=== PATIENT | female | born 2000 | race Caucasian/White ===

== ENCOUNTER 2019-11-14 22:27 | Emergency (ER) | payer OTHER, SELFPAY ==
[2019-11-14 22:52] VITALS: BP 118/73; PULSE 86; RESP 16; TEMP 36.7; O2SAT 98; BMI 25.7
--- NOTE | 2019-11-14 23:09 | ED.HA ---
HPI - Headache General Chief Complaint: Headache Stated Complaint: MIGRAINE Time Seen by Provider: 11/14/19 23:08 History of Present Illness HPI Narrative: This is a 18-year-old female who presents with 2 weeks of headache that is similar in presentation and progression as her prior headaches. She denies any associated fevers, chills, hearing the/visual such speech abnormalities and denies any unilateral weakness / numbness /tingling. In addition, she denies any or GI symptoms Related Data Allergies Allergy/AdvReac Type Severity Reaction Status Date / Time No Known Allergies Allergy Verified 11/14/19 22:52 Review of Systems Review of Systems: Pertinent positives and negatives as stated in HPI and 10 point review of systems is otherwise negative. [facility] Past Medical History Source: nursing notes reviewed Medical History Migraine Social History Social History Alcohol intake: never Smoked in Last 30 Days: No Use of substances other than those prescribed or required for medical reasons: No Advance Directives: No Physical Exam Vital Signs and I&O and Narrative: Vital Signs and I&O: Vital Signs Temp 98.0 F 11/14/19 22:52 Pulse 71 11/14/19 23:41 Resp 18 11/14/19 23:41 BP 120/68 11/14/19 23:41 Pulse Ox 98 11/14/19 22:52 Intake & Output 11/14/19 11/14/19 11/15/19 06:59 18:59 06:59 Intake Total 382.95 / 382.95 Balance 382.95 / 382.95 Weight 70.307 kg Intake: Intake, IV Amoun t 382.95 / 382.95 0.9 % Sodium C hloride 1,000 ml 382.95 / 382.95 @ 999 mls/hr I VCONT .Q1H1M [facility] Rx#:[id number] Body Mass Index 25.7 VITAL SIGNS: Reviewed. GENERAL: Well developed, well nourished, in no acute distress. HEAD: Normocephalic/atraumatic, Posterior oropharynx was without edema, erythema or exudate. EYES: PERRLA, Pupils <>, EOMI intact without pain, no nystagmus/pallor/icterus noted EARS: Ext canals without abnormality, TMs non-bulging and non-erythematous NOSE: Nares patent bilateral OROPHARYNX: no oral lesions noted, posterior pharynx clear and non-erythematous without noted tonsillar enlargement/erythema/exudates NECK: Supple, no adenopathy LUNGS: Normal breath sounds. No adventitious sounds or accessory muscle use. SpO2<> CARDIOVASCULAR: Regular rate and rhythm without noted murmurs, no JVD or lower extremity edema. ABDOMEN: Soft, non-tender, non-distended with bowel sounds. No rigidity. No guarding. No palpable masses or hernias noted MUSCULOSKELETAL: No tenderness, deformities, or effusions noted on gross inspection. EXTREMITIES: No cyanosis, clubbing or edema. SKIN: Inspection of the skin reveals no rashes, ulcerations, jaundice, pallor, or petechiae. NEUROLOGIC: Alert and oriented x 3. Strength and sensation to light touch were grossly intact x 4. Course Course Hospital Course: this is a 18-year-old female with history and clinical presentation consistent with an acute on chronic exacerbation of her underlying chronic migraine headaches. There are no concerning focal deficits identified and patient had complete resolution of her headache with a L of fluids and a combination of Tylenol and Toradol. Review of urinalysis and urine are negative for evidence of infection or . Patient was discharged in stable condition. MDM - Headache Lab Data Labs: Lab Results 11/14/19 Range/Units 23:52 Urine Color YELLOW Urine Appearance HAZY Urine pH 7.0 (5.0-8.0) Ur Specific [place] 1.020 (1.005-1.025) Urine Protein NEG (NEG-TRACE) MG/DL Urine Glucose (UA) NEG (NEG) MG/DL Urine Ketones NEG (NEG) MG/DL Urine Blood NEG (NEG) Urine Nitrite NEG (NEG) Ur Leukocyte Esterase NEG (NEG) Urine Test NEGATIVE (NEGATIVE) Discharge Plan Discharge Clinical Impression: Migraine Qualifiers: Migraine type: unspecified Status migrainosus presence: without status migrainosus Intractability: not intractable Qualified Code(s): G43.909 - Migraine, unspecified, not intractable, without status migrainosus Patient Disposition: Home, Self-Care Instructions: Migraine Headache (ED) Additional Instructions: 1. Tylenol 1000 mg, orally, every 6 hours as needed for headache control. Do not exceed 4000 mg within 24 hours. 2. ibuprofen 400 mg, orally with milk or food, every 6 hours as needed for headache control. 3. you may take the Tylenol and ibuprofen together without adverse reaction. 4. follow-up with your primary care provider in 2 days for further evaluation and management of your headaches. The patient and/or family acknowledge understanding of results (as applicable), diagnosis, treatment plan, need for follow up, and symptoms that should prompt a return to the emergency room. Referrals: Physician,Unknown [Primary Care Provider] - 2 days
[2019-11-14 23:41] VITALS: BP 120/68; PULSE 71; RESP 18
[2019-11-14 23:59] LABS: Appearance Urine HAZY; Color Urine YELLOW; Glucose Urine UA NEG (NEG); Leukocyte Esterase Urine NEG (NEG); Nitrite Urine NEG (NEG); UACC Culture Trigger NO; Urine Blood NEG (NEG); Urine Ketones NEG (NEG); Urine Protein NEG (NEG-TRACE)
[2019-11-15 00:01] LABS: UPreg QC Valid YES; Urine Pregnancy NEGATIVE (NEGATIVE)
[2019-11-15] MEDS: Acetaminophen 325 MG TABLET 975 MG PO (00:22)
[2019-11-15] MEDS: Ketorolac Tromethamine 15 MG/ML VIAL IV (00:24)
[2019-11-15] MEDS: 0.9 % Sodium Chloride 1,000 ML 999 ML IVCONT (00:25)
== END 2019-11-15 01:31 | disposition home or self-care (01) ==
PROVIDERS: Emergency Provider Student in an Organized Health Care Education/Training Program
DX: G43.909 Migraine, unspecified, not intractable, without status migrainosus (principal)
CPT/HCPCS: 81003; 81025; 96361; 96374; 99284; J1885

== ENCOUNTER 2019-11-29 13:40 | Emergency (ER) | payer OTHER, SELFPAY ==
[2019-11-29 14:28] VITALS: BP 123/75; PULSE 99; RESP 16; TEMP 37; O2SAT 98; BMI 25.7
--- NOTE | 2019-11-29 15:30 | ED.GENADULT ---
HPI - General Adult General Chief complaint: General Medical Stated complaint: rash Time Seen by Provider: 11/29/19 15:15 Source: patient Mode of arrival: ambulatory Limitations: no limitations History of Present Illness HPI narrative: 18yoF c PMHX of Migraine headaches presenting to the ED c c/o rash to body for a few weeks worse today. Also Reports she recently traveled to [place] although had the rash before she went to [place] and came back and has had a runny nose only at nighttime and is requesting a COVID swab at this time. Denies any other symptoms complaints or concerns at this time. Related Data Previous Rx's Medication Instructions Recorded ketoconazole 1 applic TOPICAL BID #30 g NS 11/29/19 permethrin [Elimite] 1 applic TOPICAL Q14D #60 g NS 11/29/19 Allergies Allergy/AdvReac Type Severity Reaction Status Date / Time No Known Allergies Allergy Verified 11/14/19 22:52 Review of Systems Review of Systems: Constitutional : No Weight loss, No Fever, No Chills, No Night Sweats, No Fatigue, No Malaise ENT/Mouth : No Hearing loss, No Ear Pain, No Sinus Pain, No Hoarseness, No sore throat, No Swallowing Difficulty Cardiovascular : No Chest Pain, No SOB, Respiratory : No Cough, No Sputum, No Wheezing, No Dyspnea Gastrointestinal : No Nausea, No Vomiting, No Diarrhea, No Constipation, No abdominal Pain, No Hematochezia, No Melena Musculoskeletal : No joint pain, No Myalgias, No Joint Swelling Skin : No lacerations Neuro : No Weakness Yes all other systems are reviewed and are negative [facility] Past Medical History Attestation statement: The following information was validated with the patient. Medical History Migraine Sinus pain Surgical History S/P lumpectomy, right breast Social History Social History Alcohol intake: never Smoking Status: Never smoker Advance Directives: No Advance Directives Information Provided: No Physical Exam Vital Signs: Vital Signs: Vital Signs Temp Pulse Resp BP Pulse Ox 11/29/19 14:28 98.6 F 99 16 123/75 98 Body Mass Index 25.7 vital signs have been reviewed as normal and appeared to be correct. Blood pressure normal. Heart rate normal. Respiration rate normal. Temperature normal. Oxygen saturation normal. Appearance: Alert. Oriented X3. No acute distress. Head: Normal external exam. Normocephalic. Atraumatic. No [place] signs noted. No raccoon eyes noted Eyes: PERRLA. EOMI. Conjunctiva and sclera normal. Eyelids normal. ENT: EAC normal. TM's Normal. Pharynx normal. Uvula midline. Moist mucous membranes. No trismus noted. No drooling noted. No muffled voice noted. Neck: Normal inspection. Neck supple. FROM. No adenopathy. Thyroid Normal. No meningeal signs. No neck mass noted. CVS: Normal heart rate and rhythm. Heart sound normal. No murmurs noted. Pulses normal throughout. Respiratory: No respiratory distress. Painless inspiration. Breath sounds normal. No wheezes/rales/rhonchi noted. Chest nontender. No accessory muscle usage noted or decreased air movement noted. Abdomen: Soft and nontender. Bowel sounds normal in all 4 quadrants. No distention noted. No organomegaly noted. No visible injury noted. Back: No CVA tenderness. Full range of motion noted. Skin: Skin warm and dry. Normal skin color. Normal skin turgor. No lesions/lacerations noted. Rash scattered throughout body appears raised with pruritic macular papular lesions with burrows almost with a central clearing. See pictures below . Extremities: No lower extremity edema. Extremities exhibit normal range of motion. Extremities nontender. Neuro: Oriented X 3. No motor deficit. No sensory deficit. Reflexes normal. Course Course Course Narrative: 18yoF c PMHX of Migraine headaches presenting to the ED c c/o rash to body for a few weeks worse today. Also Reports she recently traveled to [place] although had the rash before she went to [place] and came back and has had a runny nose only at nighttime and is requesting a COVID swab at this time. - on exam appears to be scabies versus tinea corporis therefore will treat with scabies treatment and instructed patient if not better within a few days to try the anti fungal creams. Patient understands agrees with this plan. Will also test for COVID at this time. Along with instructions to follow up with any new or worsening symptoms to follow-up with primary care provider. Patient understands agrees Discharge Plan Discharge Clinical Impression: Scabies, Tinea corporis Patient Disposition: Home, Self-Care Instructions: Tinea Corporis (ED), Scabies (ED), COVID-19 (Coronavirus Disease 2019) (ED) Additional Instructions: Follow-up if any new or worsening symptoms follow-up with her primary care provider. At this time you will be contacted with either NEGATIVE OR POSITIVE results. -Please wait until we contact you for your results. At this time you will be okay for discharge. Please plan for self quarantine for up to 14 days. Do not expose yourself to others. You may not go to work. If testing does come back negative you may return to activities as long as you are no longer having any symptoms for at least 3 days. Please continue to follow cold instructions and wash your hands frequently. You may take Tylenol as directed on the bottle for pain or fever. Patient seen in the emergency department on 11/29/2019 and should be excused from work until negative test results AND until 72 hours without any symptoms AND at least 10 days have passed since symptoms first appeared or since last exposure to COVID-19 positive patient CDC Guidelines for home isolation: - Stay away from others - WEAR A MASK if you are sick AND STAY HOME - Cover your mouth and nose with a tissue when you cough or sneeze. Dispose of tissues in a lined trash can and wash your hands immediately with soap and water for at least 20 seconds. If soap and water are not available, clean hands with alcohol-based hand wildlife conservation professor that contains at least 60% alcohol. - Clean your hands often with soap and water for at least 20 seconds - Avoid touching your eyes, nose and mouth with unwashed hands - Do not share dishes, drinking glasses, cups, eating utensils, towels, or bedding with other people in your home. After using these items, wash them thoroughly with soap and water or put in the field consultant. - Clean high-touch surfaces in your isolation area ( sick room and bathroom) every day; let a caregiver clean and disinfect high-touch surfaces in other areas of the home. Clean the area or item with soap and water or another detergent if it is dirty. Then, use a household disinfectant. - Limit contact with pets and animals: If you must care for a pet, wash your hands before and after interacting with them).).).).).).). Prescriptions: New permethrin [Elimite] 5 % cream 1 applic topical Q14D Qty: 60 RF: 1 ketoconazole 2 % cream 1 applic topical BID Qty: 30 RF: 0 Stand Alone Forms: Work/School Release Print Language: [place]
== END 2019-11-29 16:30 | disposition home or self-care (01) ==
PROVIDERS: Physician Assistant Medical; Emergency Provider Emergency Medicine
DX: B35.4 Tinea corporis (principal); Z20.828 Contact with and (suspected) exposure to other viral communicable diseases
CPT/HCPCS: 87635; 99284

== ENCOUNTER 2020-01-15 18:44 | Emergency (ER) | payer OTHER, SELFPAY ==
[2020-01-15 19:02] VITALS: BP 143/82; PULSE 113; RESP 20; TEMP 36.4; O2SAT 98; BMI 25.7
[2020-01-15 20:00] VITALS: BP 120/71; PULSE 80; RESP 16; O2SAT 99
--- NOTE | 2020-01-15 20:08 | PC.NURSE ---
pt up to restroom for urine sample to lab.
[2020-01-15 20:11] LABS: Glucose Urine UA NEG (NEG); Leukocyte Esterase Urine NEG (NEG); Nitrite Urine NEG (NEG); Specific Gravity - Urine 1.025 (1.005-1.025); Urine Blood NEG (NEG); Urine Ketones NEG (NEG); Urine Protein NEG (NEG-TRACE)
[2020-01-15 20:13] LABS: UPreg QC Valid YES; Urine Pregnancy NEGATIVE (NEGATIVE)
[2020-01-15 20:13] LABS: Appearance Urine CLEAR; Color Urine YELLOW
--- NOTE | 2020-01-15 20:30 | ED.GENADULT ---
HPI - General Adult General Chief complaint: General Medical Stated complaint: Med reaction Time Seen by Provider: 01/15/20 18:46 Source: patient Mode of arrival: ambulatory Limitations: no limitations History of Present Illness HPI narrative: 19-year-old female with history of migraines presents with adverse drug reaction And suspected sexually transmitted infection exposure. She states that she took a Percocet 10 because of back pain, and is having palpitations, feels weird , and states that when she took this Percocet she was having sex with somebody in the condom broke. She is requesting sexually transmitted infection testing and Treatment. Onset (ago): hour(s) Severity: mild Severity scale (1-10): 3 Related Data Previous Rx's Medication Instructions Recorded ketoconazole 1 applic TOPICAL BID #30 g NS 11/29/19 permethrin [Elimite] 1 applic TOPICAL Q14D #60 g NS 11/29/19 Allergies Allergy/AdvReac Type Severity Reaction Status Date / Time No Known Allergies Allergy Verified 01/15/20 19:02 Review of Systems Review of Systems: Constitutional: No Fever, No Chills ENT/Mouth: No sore throat, No Rhinorrhea Eyes: No Eye Pain, No Swelling, No Redness Cardiovascular: No Chest Pain, No SOB Respiratory: No Cough, No Sputum Gastrointestinal: No Nausea, No Vomiting, No Diarrhea, No abdominal Pain Genitourinary: No Dysuria, No Hematuria Musculoskeletal: No joint pain, No Myalgias, No Joint Swelling Skin: No Skin Lesions, No rash Neuro: No Weakness, No Numbness, No Loss of Consciousness, No Dizziness, No Headache Psych: No Anxiety, No Depression, No SI/HI/AH/VH Heme/Lymph: No Bruising, No Bleeding,No Lymphadenopathy Endocrine: No Polyuria, No Polydipsia Yes all other systems are reviewed and are negative [facility] Past Medical History Attestation statement: The following information was validated with the patient. Medical History Migraine Sinus pain Surgical History S/P lumpectomy, right breast Social History Social History Alcohol intake: never Smoking Status: Never smoker Advance Directives: No Advance Directives Information Provided: Yes Physical Exam Vital Signs: Vital Signs: Last Vital Signs Temp 97.6 F 01/15/20 19:02 Pulse 80 01/15/20 20:00 Resp 16 01/15/20 20:00 BP 120/71 01/15/20 20:00 Pulse Ox 99 01/15/20 20:00 Body Mass Index 25.7 Appearance: Alert. Oriented X3. No acute distress. Eyes: Pupils equal, round and reactive to light. ENT: Pharynx normal. Neck: Normal inspection. Neck supple. CVS: Normal heart rate and rhythm. Pulses normal. Respiratory: No respiratory distress. Breath sounds normal. Abdomen: Soft and nontender. Skin: Skin warm and dry. Normal skin color. Normal skin turgor. Extremities: No lower extremity edema. Neuro: No motor deficit. No sensory deficit. Course Course Course Narrative: 19-year-old female presents with narcotic abuse and sexually transmitted infection exposure. Plan of care is to treat and test for syphilis, chlamydia and gonorrhea. As far as the adverse drug reaction, she was advised that she needs to wait it out, she was advised not to take Percocets that do not belong to her or prescribed to her. She is alert oriented x4, answering questions politely and appropriately, vital signs within normal limits and stable, appears nontoxic. Patient verbalized understanding of and agrees to plan of care discharge home. Medical Decision Making Differential Diagnosis Differential Diagnosis: Opioid abuse, sexually transmitted infection exposure Lab Data Lab results reviewed: Yes I reviewed the patient's lab results. Labs: Lab Results 01/15/20 01/15/20 Range/Units 19:59 20:00 Urine Color YELLOW Urine Appearance CLEAR Urine pH 7.0 (5.0-8.0) Ur Specific [place] 1.025 (1.005-1.025) Urine Protein NEG (NEG-TRACE) MG/DL Urine Glucose (UA) NEG (NEG) MG/DL Urine Ketones NEG (NEG) MG/DL Urine Blood NEG (NEG) Urine Nitrite NEG (NEG) Ur Leukocyte Esterase NEG (NEG) Urine Test NEGATIVE (NEGATIVE) Discharge Plan Discharge Clinical Impression: Sexually transmitted infection, Narcotic abuse Patient Disposition: Home, Self-Care Instructions: Sexually Transmitted Diseases (ED) Additional Instructions: Please stop using Percocet that are not prescribed to you. You were evaluated for adverse drug reaction. The medication reaction will wear off in time. You were tested and treated for syphilis, chlamydia and gonorrhea. please follow-up with [facility] for further care. Thank you for choosing this emergency department for evaluation. Please follow-up with primary care physician as needed. Return to the emergency department for any new, concerning, or worsening symptoms. Prescriptions: No Action permethrin [Elimite] 5 % cream 1 applic topical Q14D Qty: 60 RF: 1 ketoconazole 2 % cream 1 applic topical BID Qty: 30 RF: 0 Interventions: ED Discharge Assessment Last Done: 01/15/20 21:36 Discharge Date/Time: 01/15/20 21:55
--- NOTE | 2020-01-15 20:33 | PC.NURSE ---
PA WITH PT IN ROOM FOR EVAL.
[2020-01-15] MEDS: Azithromycin 500 MG TABLET 1000 MG PO ×2 (20:43)
[2020-01-15] MEDS: Penicillin G Benzathine 2,400,000 UNIT/4 ML SYRINGE 2400000 UNIT IM (20:43)
[2020-01-15] MEDS: cefTRIAXone sodium 250 MG, Lidocaine HCl 1 % MPF 0.9 ML IM (20:43)
[2020-01-21 14:27] LABS: CT PCR NOT DETECTED (Not Detect.); NG PCR NOT DETECTED (Not Detect.)
== END 2020-01-15 21:55 | disposition home or self-care (01) ==
PROVIDERS: Nurse Practitioner Family; Emergency Provider Emergency Medicine
DX: Z20.2 Contact with and (suspected) exposure to infections with a predominantly sexual mode of transmission (principal); R00.2 Palpitations; T40.2X5A Adverse effect of other opioids, initial encounter; F11.10 Opioid abuse, uncomplicated; Y92.9 Unspecified place or not applicable
CPT/HCPCS: 81003; 81025; 87491; 87591; 96372; 99284; J0561; J0696

== ENCOUNTER 2020-05-05 18:25 | Emergency (ER) | payer OTHER, SELFPAY ==
[2020-05-05 18:35] VITALS: BP 132/86; PULSE 98; RESP 16; TEMP 37.2; O2SAT 100; BMI 26.6
--- NOTE | 2020-05-05 18:46 | ED.GENADULT ---
HPI - General Adult General Chief complaint: General Medical Stated complaint: sore throat, headache Source: patient Mode of arrival: ambulatory Limitations: no limitations History of Present Illness HPI narrative: 19-year-old female with no significant past medical history presents with sore throat, fever, and chills. States that she noted white spots all over her tonsils and back of her throat. She does not describe any other symptoms, denies chest pain or pressure, palpitations, shortness breath, abdominal pain, abdominal distention, dysuria, hematuria, or any other concerning symptoms. Onset (ago): day(s) Severity: moderate Severity scale (1-10): 8 Quality: burning and aching Pain Consistency: constant Relieving factors: none Exacerbating factors: eating Associated symptoms: fever/chills and headaches Treatments prior to arrival: none Related Data Previous Rx's Medication Instructions Recorded ketoconazole 1 applic TOPICAL BID #30 g NS 11/29/19 permethrin [Elimite] 1 applic TOPICAL Q14D #60 g NS 11/29/19 amoxicillin 500 mg PO Q12H 10 Days #20 cap 05/05/20 ibuprofen 600 mg PO Q6H PRN #30 tab 05/05/20 Allergies Allergy/AdvReac Type Severity Reaction Status Date / Time No Known Allergies Allergy Verified 01/15/20 19:02 Review of Systems Review of Systems: Constitutional: positive Fever, positive Chills, positive fatigue, positive Malaise ENT/Mouth: positive sore throat, no runny nose Eyes: No Discharge Cardiovascular: No Chest Pain, No SOB Respiratory: No Cough, No Sputum, No Wheezing, No Smoke Exposure, No Dyspnea Gastrointestinal: No Nausea, No Vomiting, No Diarrhea Genitourinary: no irregular bleeding, No Dysuria, No Urinary Frequency, No Hematuria, No Urinary Incontinence, No Urgency, No Flank Pain, Musculoskeletal: positive Myalgia Skin: No rash Neuro: No Headache Yes all other systems are reviewed and are negative [facility] Past Medical History Attestation statement: The following information was validated with the patient. Source: old records reviewed Medical History Migraine Sinus pain Surgical History S/P lumpectomy, right breast Social History Social History Alcohol intake: never Smoking Status: Never smoker Advance Directives: No Advance Directives Information Provided: Yes Physical Exam Vital Signs: Vital Signs: Last Vital Signs Temp 99.0 F 05/05/20 18:35 Pulse 98 05/05/20 18:35 Resp 16 05/05/20 18:35 BP 132/86 05/05/20 18:35 Pulse Ox 100 05/05/20 18:35 Body Mass Index 26.6 Appearance: Alert. Oriented X3. Moderate distress. Eyes: Pupils equal, round and reactive to light. ENT: Pharynx erythematous with tonsillar swelling and bilateral exudates. Neck: Normal inspection. Neck supple. CVS: Normal heart rate and rhythm. Pulses normal. Respiratory: No respiratory distress. Breath sounds normal. Abdomen: Soft and nontender. Skin: Skin warm and dry. Normal skin color. Normal skin turgor. Extremities: No lower extremity edema. Neuro: No motor deficit. No sensory deficit. Course Course Course Narrative: 19-year-old female presents with upper respiratory symptoms and sore throat. Plan of care is to test for COVID and strep. Based on patient's physical presentation, Centor scale of 3, we will treat for pharyngitis. Patient verbalized understanding of and agrees to plan of care discharge home. Medical Decision Making Differential Diagnosis Differential Diagnosis: Pharyngitis, URI, COVID-19 Medical Records Medical records reviewed: Yes I reviewed the patient's medical records. Lab Data Lab results reviewed: Yes I reviewed the patient's lab results. Labs: Lab Results 05/05/20 Range/Units 19:34 Coronavirus (PCR) NEGATIVE (Negative) Influenza Type A (PCR) NEGATIVE (Negative) Influenza Type B (PCR) NEGATIVE (Negative) RSV RNA Qual (PCR) NEGATIVE (Negative) Discharge Plan Discharge Clinical Impression: Strep pharyngitis, COVID-19 Patient Disposition: Home, Self-Care Instructions: Pharyngitis (ED), Strep Throat (ED), COVID-19 (Coronavirus Disease 2019) (ED) Additional Instructions: You were evaluated for sore throat, headache, and upper respiratory symptoms. We tested for COVID-19, I will call you with your test results. We tested you for strep throat, we are treating you based on her physical presentation. Please take amoxicillin twice a day as directed use Tylenol and Motrin as needed for pain management. Thank you for choosing this emergency department for evaluation. Please follow-up with primary care physician as needed. Return to the emergency department for any new, concerning, or worsening symptoms. Prescriptions: New amoxicillin 500 mg capsule 500 mg PO Q12H 10 Days Qty: 20 RF: 0 ibuprofen 600 mg tablet 600 mg PO Q6H PRN (Reason: fever or pain) Qty: 30 RF: 0 No Action permethrin [Elimite] 5 % cream 1 applic topical Q14D Qty: 60 RF: 1 ketoconazole 2 % cream 1 applic topical BID Qty: 30 RF: 0 Interventions: ED Discharge Assessment Last Done: 05/05/20 19:50 Discharge Date/Time: 05/05/20 19:51
--- NOTE | 2020-05-05 19:00 | PC.NURSE ---
PT EVALED BY PROVIDER FOR SORE THROAT HEADACHE. TONSILLS SWOLLEN, THROAT RED. SEE NEW ORDERS.
[2020-05-05] MEDS: Ibuprofen Oral Susp 200 MG/10 ML ORAL.SUSP 600 MG PO (19:36)
[2020-05-05] MEDS: Amoxicillin 500 MG CAPSULE PO (19:37)
[2020-05-05 20:30] LABS: Influenza A PCR NEGATIVE (Negative); Influenza B PCR NEGATIVE (Negative); Resp Syncy Virus RNA Qual PCR NEGATIVE (Negative); SARS COV2 PCR INHOUSE NEGATIVE (Negative)
== END 2020-05-05 19:51 | disposition home or self-care (01) ==
PROVIDERS: Nurse Practitioner Family; Emergency Provider Emergency Medicine
DX: U07.1 COVID-19 (principal); J02.0 Streptococcal pharyngitis; J02.9 Acute pharyngitis, unspecified; R51.9 Headache, unspecified; Z79.899 Other long term (current) drug therapy
CPT/HCPCS: 0241U; 36415; 87880; 99283

== ENCOUNTER 2020-05-24 14:43 | Outpatient (REF) | payer OTHER, SELFPAY ==
[2020-05-24 15:46] LABS: COVID-19 Test Negative (Negative)
== END 2020-05-24 14:44 | disposition home or self-care (01) ==
LOC: HO.LAB 14:43
PROVIDERS: Visit Provider Internal Medicine
DX: Z20.822 Contact with and (suspected) exposure to COVID-19 (principal)
CPT/HCPCS: 36415; 87635; C9803

== ENCOUNTER 2020-07-04 09:07 | Emergency (ER) | payer OTHER, SELFPAY ==
[2020-07-04 09:26] VITALS: BP 121/88; PULSE 86; RESP 18; TEMP 36.7; O2SAT 98; BMI 26.6
[2020-07-04 09:48] LABS: Glucose Urine UA NEG (NEG); Leukocyte Esterase Urine NEG (NEG); Nitrite Urine NEG (NEG); PH 6.5 (5.0-8.0); Specific Gravity - Urine <= 1.005 (1.005-1.025); Urine Blood 3+ (NEG); Urine Ketones NEG (NEG); Urine Protein 1+ MG/DL (NEG-TRACE)
[2020-07-04 09:49] LABS: Appearance Urine HAZY; Color Urine YELLOW
[2020-07-04 09:50] LABS: UPreg QC Valid YES; Urine Pregnancy NEGATIVE (NEGATIVE)
[2020-07-04 10:07] LABS: Amorphous Sediment Urine 1+ /LPF; Bacteria Urine 1+ /LPF; Squamous Epithelial Cell Urine 4+ /LPF; WBC Urine 0-2 /HPF (0-4)
== END 2020-07-04 10:41 | disposition left against medical advice (07) ==
PROVIDERS: Emergency Provider Emergency Medicine
DX: R11.10 Vomiting, unspecified (principal); Z86.16 Personal history of COVID-19
CPT/HCPCS: 81001; 81025; 99283

== ENCOUNTER 2020-07-04 16:09 | Emergency (ER) | payer OTHER, SELFPAY ==
[2020-07-04 16:31] VITALS: BP 123/88; PULSE 86; RESP 16; TEMP 36.4; O2SAT 100; BMI 26.6
[2020-07-04 17:55] LABS: MANUAL DIFF FLAG NO
[2020-07-04 17:56] LABS: Basophils Absolute Auto 0.1 X10*3/uL (0.0-0.2); Basophils Percent Auto 0.5 % (0-2); Eosinophils Absolute Auto 0.3 X10*3/uL (0.0-0.4); Eosinophils Percent Auto 2.7 % (0-4); Hematocrit 43.3 % (37-47); Hemoglobin 13.9 g/dl (12.0-16.0); Imm Gran Abs Auto 0.03 X10*3/uL (0.00-0.03); Imm Gran Pct Auto 0.3 % (0.0-0.4); Lymphocytes Absolute Auto 2.2 X10*3/uL (1.2-4.9); Lymphocytes Percent Auto 20.8 % (20-40); Mean Corpuscular HGB Conc 32.1 g/dl (31.0-35.0); Mean Corpuscular Hemoglobin 26.5 pg (27.0-33.0); Mean Corpuscular Volume 82.6 fL (80-98); Mean Platelet Volume 10.5 fL (9.4-12.3); Monocytes Percent Auto 9.3 % (2-11); Neutrophils Absolute Auto 7.1 X10*3/uL (2.0-8.3); Neutrophils Percent Auto 66.4 % (45-73); Platelet Count 270 X10*3/uL (160-400); Red Blood Count 5.24 X10*6/uL (4.20-5.50); Red Cell Distribution Width 13.4 % (11.0-16.0); White Blood Count 10.7 X10*3/uL (4.8-10.8)
[2020-07-04 18:07] LABS: Glucose Urine UA NEG (NEG); Leukocyte Esterase Urine NEG (NEG); Nitrite Urine NEG (NEG); PH 6.5 (5.0-8.0); Urine Blood 2+ (NEG); Urine Ketones NEG (NEG); Urine Protein 2+ MG/DL (NEG-TRACE)
[2020-07-04 18:08] LABS: Appearance Urine CLEAR; Color Urine YELLOW
[2020-07-04 18:13] LABS: Anion Gap 13 (12-20); Blood Urea Nitrogen 9 mg/dL (9-16); Calcium 9.4 mg/dL (8.4-10.2); Carbon Dioxide 26 mmol/L (22-29); Chloride 103 mmol/L (96-108); Creatinine Clr Calc Pharmacy 92.5; Estimated Glomerular Filt Rate > 60; Glucose Random 87 mg/dL (60-115); Potassium 3.4 mmol/L (3.3-5.1); Sodium 139 mmol/L (135-145)
[2020-07-04 18:16] LABS: Squamous Epithelial Cell Urine 4+ /LPF; WBC Urine 0-2 /HPF (0-4)
[2020-07-04 19:29] VITALS: BP 129/82; PULSE 84; RESP 16; TEMP 37; O2SAT 98
--- NOTE | 2020-07-04 20:15 | ED.ABDPAIN ---
HPI - Abdominal Pain General Chief Complaint: Abdominal Pain Stated Complaint: vomiting Time Seen by Provider: 07/04/20 20:15 Source: patient Mode of arrival: ambulatory Limitations: no limitations History of Present Illness HPI narrative: Patient no significant past medical history complaining of nausea vomiting with diffuse abdominal pain vomited 5- 6 times no diarrhea check test at home which was negative no fever or chills no shortness of breath or cough Related Data Previous Rx's Medication Instructions Recorded ketoconazole 1 applic TOPICAL BID #30 g NS 11/29/19 permethrin [Elimite] 1 applic TOPICAL Q14D #60 g NS 11/29/19 amoxicillin 500 mg PO Q12H 10 Days #20 cap 05/05/20 ibuprofen 600 mg PO Q6H PRN #30 tab 05/05/20 ondansetron 4 mg PO Q6-8H PRN #7 tab 07/04/20 Allergies Allergy/AdvReac Type Severity Reaction Status Date / Time No Known Allergies Allergy Verified 07/04/20 09:26 Review of Systems Review of Systems Yes all other systems are reviewed and are negative Physical Exam Vital Signs: Vital Signs: Last Vital Signs Temp 98.6 F 07/04/20 19:29 Pulse 84 07/04/20 19:29 Resp 16 07/04/20 19:29 BP 129/82 07/04/20 19:29 Pulse Ox 98 07/04/20 19:29 Body Mass Index 26.6 Appearance: Alert. Oriented X3. No acute distress. Eyes: PERRLA, No Nystagmus ENT: Pharynx normal. Oral Mucosa moist Neck: Normal inspection. Neck supple. CVS: Normal heart rate and rhythm. Pulses normal. Respiratory: No respiratory distress. Equal air entry bilateral, no wheezing/rales/rhonchi Abdomen: Soft and mild epigastric tenderness no rebound tenderness or guarding Bowel sounds are present, no mass palpable, no CVA tenderness Skin: Skin warm and dry. Normal skin color. Normal skin turgor. Extremities: No lower extremity edema. No calf tenderness Neuro: Oriented X 3. No motor deficit. No sensory deficit.No cerebellar signs , cranial nerves II-XII intact MDM - Abdominal Pain Lab Data Attestation: I reviewed the patient's lab results. Result diagrams: 07/04/20 17:48 07/04/20 17:48 Labs: Lab Results 05/07/04/20 07/04/20 Range/Units 17:48 17:48 17:57 WBC 10.7 (4.8-10.8) X10*3/uL RBC 5.24 (4.20-5.50) X10*6/uL Hgb 13.9 (12.0-16.0) g/dl Hct 43.3 (37-47) % MCV 82.6 (80-98) fL MCH 26.5 L (27.0-33.0) pg MCHC 32.1 (31.0-35.0) g/dl RDW 13.4 (11.0-16.0) % Plt Count 270 (160-400) X10*3/uL MPV 10.5 (9.4-12.3) fL Immature Gran % (Auto) 0.3 (0.0-0.4) % Neut % (Auto) 66.4 (45-73) % Lymph % (Auto) 20.8 (20-40) % [place] % (Auto) 9.3 (2-11) % Eos % (Auto) 2.7 (0-4) % Baso % (Auto) 0.5 (0-2) % Lymph # (Auto) 2.2 (1.2-4.9) X10*3/uL [place] # (Auto) 1.0 (0.1-1.2) X10*3/uL Eos # (Auto) 0.3 (0.0-0.4) X10*3/uL Baso # (Auto) 0.1 (0.0-0.2) X10*3/uL Abs Immat Gran (auto) 0.03 (0.00-0.03) X10*3/uL Absolute Neuts (auto) 7.1 (2.0-8.3) X10*3/uL Absolute Nucleated RBC 0.000 (0.0-0.012) X10*3/uL Nucleated RBC % (auto) 0.0 (0.0-0.2) /100WBC Sodium 139 (135-145) mmol/L Potassium 3.4 (3.3-5.1) mmol/L Chloride 103 (96-108) mmol/L Carbon Dioxide 26 (22-29) mmol/L Anion Gap 13 (12-20) BUN 9 (9-16) mg/dL Creatinine 0.96 (0.5-1.4) mg/dL Estim Creat Clear Calc 92.5 Estimated GFR > 60 Random Glucose 87 (60-115) mg/dL Calcium 9.4 (8.4-10.2) mg/dL Urine Color YELLOW Urine Appearance CLEAR Urine pH 6.5 (5.0-8.0) Ur Specific [place] 1.010 (1.005-1.025) Urine Protein 2+ H (NEG-TRACE) MG/DL Urine Glucose (UA) NEG (NEG) MG/DL Urine Ketones NEG (NEG) MG/DL Urine Blood 2+ H (NEG) Urine Nitrite NEG (NEG) Ur Leukocyte Esterase NEG (NEG) Urine RBC 10-14 H (0) /HPF Urine WBC 0-2 (0-4) /HPF Ur Squamous Epith Cells 4+ /LPF Urine Bacteria NONE /LPF Discharge Plan Discharge Clinical Impression: Vomiting Patient Disposition: Home, Self-Care Instructions: Acute Nausea and Vomiting (ED) Additional Instructions: Drink plenty of fluids take nausea medication as prescribed. Follow with PCP if not better Prescriptions: New ondansetron 4 mg tablet,disintegrating 4 mg PO Q6-8H PRN (Reason: nausea and vomiting) Qty: 7 RF: 0 No Action permethrin [Elimite] 5 % cream 1 applic topical Q14D Qty: 60 RF: 1 ketoconazole 2 % cream 1 applic topical BID Qty: 30 RF: 0 amoxicillin 500 mg capsule 500 mg PO Q12H 10 Days Qty: 20 RF: 0 ibuprofen 600 mg tablet 600 mg PO Q6H PRN (Reason: fever or pain) Qty: 30 RF: 0 Stand Alone Forms: Work/School Release Interventions: ED Discharge Assessment Last Done: 07/04/20 22:08 Discharge Date/Time: 07/04/20 22:08 [facility] Past Medical History Medical History Migraine Sinus pain Surgical History S/P lumpectomy, right breast Social History Social History Alcohol intake: never Smoking Status: Never smoker Advance Directives: No Advance Directives Information Provided: Yes Patient : No
[2020-07-04] MEDS: Dicyclomine HCl 10 MG CAPSULE 20 MG PO (20:42)
== END 2020-07-04 22:08 | disposition home or self-care (01) ==
PROVIDERS: Emergency Provider Internal Medicine
DX: R11.2 Nausea with vomiting, unspecified (principal); R10.13 Epigastric pain; Z86.16 Personal history of COVID-19
CPT/HCPCS: 36415; 80048; 81001; 85025; 99283; 99284

== ENCOUNTER 2020-08-29 17:53 | Emergency (ER) | payer OTHER, SELFPAY ==
[2020-08-29 19:01] VITALS: BP 114/75; PULSE 89; RESP 18; TEMP 37.2; O2SAT 96; BMI 27.4
[2020-08-29 19:21] LABS: COVID-19 Test Negative (Negative); IDNOW Serial# 9DD0AD1C
--- NOTE | 2020-08-29 20:13 | ED.URI ---
HPI - URI/Sore Throat General Chief Complaint: Upper Respiratory Symptoms Stated Complaint: covid symptoms Time Seen by Provider: 08/29/20 20:13 Source: patient Mode of arrival: ambulatory Limitations: no limitations History of Present Illness HPI Narrative: 19 yo female presenting to the ER with cough, body aches, and low grade fevers for 5 days. She just came home from [place] staying with family and attributed her symptoms to traveling and the rain. She found out today that the aunt she was staying with in [place] was positive for COVID-19. She denies SOB or chest pain. She feels weak and achey. She has been taking Tylenol intermittent. She has not had any high grade fevers. MD elicited complaint: fever, cough, sore throat and nasal congestion Onset (ago): day(s) (5) Consistency: constant Severity: moderate Able to tolerate fluids by mouth: Yes Exacerbating factors: exertion Relieving factors: OTC cold medicine Context: sick contacts Associated symptoms: fever, chills, myalgias, headache, nasal congestion, sore throat and cough Treatments prior to arrival: none Related Data Previous Rx's Medication Instructions Recorded ketoconazole 1 applic TOPICAL BID #30 g NS 11/29/19 permethrin [Elimite] 1 applic TOPICAL Q14D #60 g NS 11/29/19 amoxicillin 500 mg PO Q12H 10 Days #20 cap 05/05/20 ibuprofen 600 mg PO Q6H PRN #30 tab 05/05/20 ondansetron 4 mg PO Q6-8H PRN #7 tab 07/04/20 hydrocodone-homatropine [Hycodan] 5 ml PO Q6H PRN #60 ml 08/29/20 Allergies Allergy/AdvReac Type Severity Reaction Status Date / Time No Known Allergies Allergy Verified 08/29/20 19:01 Review of Systems Review of Systems: Constitutional: + Fever, + Chills ENT/Mouth: + sore throat, No Rhinorrhea, No Swallowing Difficulty Eyes: No Eye Pain, No Swelling, No Redness Cardiovascular: No Chest Pain, No SOB Respiratory: + Cough, No Sputum, No Wheezing, No dyspnea Gastrointestinal: No Nausea, No Vomiting, No Diarrhea, No abdominal Pain Musculoskeletal: No joint pain, + Myalgias Skin: No Skin Lesions, No rash Neuro: No Weakness, No Numbness, No Dizziness, + Headache Psych: + Anxiety/Panic Heme/Lymph: No Bruising, No Lymphadenopathy PMFSH Past Medical History Attestation statement: The following information was validated with the patient. Medical History Migraine Sinus pain Surgical History S/P lumpectomy, right breast Social History Social History Alcohol intake: never Advance Directives: No Patient : No Physical Exam Vital Signs: Vital Signs: Last Vital Signs Temp 99.0 F 08/29/20 19:01 Pulse 89 08/29/20 19:01 Resp 18 08/29/20 19:01 BP 114/75 08/29/20 19:01 Pulse Ox 96 08/29/20 19:01 Body Mass Index 27.4 Appearance: Alert. Oriented X3. No acute distress. Eyes: Pupils equal, round and reactive to light. ENT: Pharynx with mild generalized erythema. No tonsilar exudates. Neck: Normal inspection. Neck supple. CVS: Normal heart rate and rhythm. Pulses normal. Respiratory: No respiratory distress. Breath sounds normal. Skin: Skin warm and dry. Normal skin color. Normal skin turgor. No rashes. Extremities: No lower extremity edema. Neuro: Oriented X 3. nonfocal Course Course Course Narrative: 19 y/o female presenting with symptoms of COVID-19 after known exposure. Her PE is unremarkable and VS are normal. Her COVID test is negative. She was counseled on how this is most likely a false negative test and she should proceed with qurantine given her known exposure. She was given a work note for 10 days and encouraged to f/u with her PCP. She can come back for repeat testing if desired. Stable for d/c with Rx for antitussive MDM - URI/Sore Throat Lab Data Labs: Lab Results 08/29/20 Range/Units 18:56 COVID-19 ([facility]) Negative (Negative) COVID-19 Clin Com See Note Critical Care Time Critical Care Time Critical Care Time: No Discharge Plan Discharge Clinical Impression: Upper respiratory infection Qualifiers: URI type: unspecified viral URI Qualified Code(s): J06.9 - Acute upper respiratory infection, unspecified Patient Disposition: Home, Self-Care Instructions: COVID-19 (Coronavirus Disease 2019) (ED) Additional Instructions: Your COVID test taj was NEGATIVE. HOWEVER, given your KNOWN EXPOSURE to a COVID POSITIVE person, this is likely a FALSE NEGATIVE TEST. Recommend quarantine at home for 10 days. Rest. Drink plenty of fluids. Take over the counter cold/flu medications as needed for your symptoms. Take Tylenol and/or Motrin as needed for fevers and body aches. Follow up with your doctor this week. If you develop difficulty breathing or any other concerning symptom come back to the ER for further evaluation. Prescriptions: New hydrocodone-homatropine [Hycodan] 5-1.5 mg/5 mL (5 mL) syrup 5 ml PO Q6H PRN (Reason: cough) Qty: 60 RF: 0 No Action ondansetron 4 mg tablet,disintegrating 4 mg PO Q6-8H PRN (Reason: nausea and vomiting) Qty: 7 RF: 0 permethrin [Elimite] 5 % cream 1 applic topical Q14D Qty: 60 RF: 1 ketoconazole 2 % cream 1 applic topical BID Qty: 30 RF: 0 amoxicillin 500 mg capsule 500 mg PO Q12H 10 Days Qty: 20 RF: 0 ibuprofen 600 mg tablet 600 mg PO Q6H PRN (Reason: fever or pain) Qty: 30 RF: 0 Stand Alone Forms: Work/School Release
== END 2020-08-29 21:05 | disposition home or self-care (01) ==
LOC: HO.ED 20:22
PROVIDERS: Emergency Provider Internal Medicine
DX: J06.9 Acute upper respiratory infection, unspecified (principal); Z20.822 Contact with and (suspected) exposure to COVID-19; R50.9 Fever, unspecified
CPT/HCPCS: 36415; 87635; 99282; 99283

== ENCOUNTER 2020-08-30 19:40 | Emergency (ER) | payer OTHER, SELFPAY ==
[2020-08-30 19:47] VITALS: BMI 25.7
[2020-08-30 20:16] VITALS: BMI 26.6
[2020-08-30 20:16] LABS: COVID-19 Test Negative (Negative); IDNOW Serial# 9DD0AD1C
[2020-08-30 21:01] VITALS: BP 124/80; PULSE 89; RESP 16; TEMP 35.6; O2SAT 98; BMI 27.4
--- NOTE | 2020-08-30 21:18 | ED.GENADULT ---
HPI - General Adult General Chief complaint: General Medical Stated complaint: covid? false neg test Time Seen by Provider: 08/30/20 21:18 Source: patient Mode of arrival: ambulatory Limitations: no limitations History of Present Illness HPI narrative: Patient with cold symptoms running nose or sore throat congestion headache body aches for last 5 days states that she slept with her aunt 3 days ago who had COVID positive patient was seen here and COVID was negative. Patient does have a dry cough no shortness of breath no rash patient has not been vaccinated with COVID-19 Related Data Previous Rx's Medication Instructions Recorded ketoconazole 1 applic TOPICAL BID #30 g NS 11/29/19 permethrin [Elimite] 1 applic TOPICAL Q14D #60 g NS 11/29/19 amoxicillin 500 mg PO Q12H 10 Days #20 cap 05/05/20 ibuprofen 600 mg PO Q6H PRN #30 tab 05/05/20 ondansetron 4 mg PO Q6-8H PRN #7 tab 07/04/20 hydrocodone-homatropine [Hycodan] 5 ml PO Q6H PRN #60 ml 08/29/20 amoxicillin 875 mg PO BID #20 tab 08/30/20 ibuprofen 600 mg PO Q6H PRN #20 tab 08/30/20 Allergies Allergy/AdvReac Type Severity Reaction Status Date / Time No Known Allergies Allergy Verified 08/29/20 19:01 Review of Systems Review of Systems: Yes all other systems are reviewed and are negative PMFSH Past Medical History Medical History Migraine Sinus pain Surgical History S/P lumpectomy, right breast Social History Social History Alcohol intake: never Advance Directives: No Advance Directives Information Provided: No Physical Exam Vital Signs: Vital Signs: Last Vital Signs Temp 96.1 F L 08/30/20 21:01 Pulse 89 08/30/20 21:01 Resp 16 08/30/20 21:01 BP 124/80 08/30/20 21:01 Pulse Ox 98 08/30/20 21:01 Body Mass Index 27.4 Appearance: Alert. Oriented X3. No acute distress. Eyes: Normal ENT: Pharynx normal. Oral Mucosa moist clear nasal discharge Neck: Normal inspection. Neck supple. CVS: Normal heart rate and rhythm. Pulses normal. Respiratory: No respiratory distress. Equal air entry bilateral, no wheezing/rales/rhonchi Abdomen: Soft and nontender. Skin: Skin warm and dry. Normal skin color. Extremities: No lower extremity edema. Neuro: Oriented X 3. Medical Decision Making Lab Data Lab results reviewed: Yes I reviewed the patient's lab results. Labs: Lab Results 08/30/20 Range/Units 19:49 COVID-19 ([facility]) Negative (Negative) COVID-19 Clin Com See Note Discharge Plan Discharge Clinical Impression: Upper respiratory infection Qualifiers: URI type: acute pharyngitis Pharyngitis/tonsillitis etiology: unspecified etiology Qualified Code(s): J02.9 - Acute pharyngitis, unspecified Patient Disposition: Home, Self-Care Instructions: Pharyngitis (ED) Additional Instructions: Drink plenty fluid or COVID test is negative. Tylenol/Motrin for fever body aches. Antibiotics as advised Prescriptions: New amoxicillin 875 mg tablet 875 mg PO BID Qty: 20 RF: 0 ibuprofen 600 mg tablet 600 mg PO Q6H PRN (Reason: pain) Qty: 20 RF: 0 No Action ondansetron 4 mg tablet,disintegrating 4 mg PO Q6-8H PRN (Reason: nausea and vomiting) Qty: 7 RF: 0 permethrin [Elimite] 5 % cream 1 applic topical Q14D Qty: 60 RF: 1 ketoconazole 2 % cream 1 applic topical BID Qty: 30 RF: 0 amoxicillin 500 mg capsule 500 mg PO Q12H 10 Days Qty: 20 RF: 0 ibuprofen 600 mg tablet 600 mg PO Q6H PRN (Reason: fever or pain) Qty: 30 RF: 0 hydrocodone-homatropine [Hycodan] 5-1.5 mg/5 mL (5 mL) syrup 5 ml PO Q6H PRN (Reason: cough) Qty: 60 RF: 0
== END 2020-08-30 21:44 | disposition home or self-care (01) ==
PROVIDERS: Emergency Provider Internal Medicine
DX: J02.9 Acute pharyngitis, unspecified (principal); Z20.822 Contact with and (suspected) exposure to COVID-19
CPT/HCPCS: 36415; 87635; 99283

== ENCOUNTER 2020-09-12 13:41 | Outpatient (REF) | payer OTHER, SELFPAY | END 2020-09-12 13:42 | disposition home or self-care (01) | LOC: HO.LAB 13:41 | PROVIDERS: Visit Provider Internal Medicine | DX: Z20.822 Contact with and (suspected) exposure to COVID-19 (principal) | CPT/HCPCS: C9803; U0003; U0005 ==

== ENCOUNTER 2020-12-05 00:54 | Emergency (ER) | payer OTHER, SELFPAY ==
--- NOTE | 2020-12-05 01:18 | ECG_ITS ---
Test Reason : DIZZINESS Blood Pressure : / mmHG Vent. Rate : 071 BPM Atrial Rate : 071 BPM P-R Int : 122 ms QRS Dur : 084 ms QT Int : 388 ms P-R-T Axes : -88 118 151 degrees QTc Int : 421 ms Unusual P axis and short DC, probable junctional rhythm Right axis deviation Nonspecific ST and T wave abnormality Abnormal ECG No previous ECGs available probable limb lead reversal-suggest repeat study Referred By: Wen Lomas Electronically Signed By:MERON LAN MD
[2020-12-05 01:37] LABS: MANUAL DIFF FLAG NO
[2020-12-05 01:38] LABS: Basophils Percent Auto 0.4 % (0-2); Eosinophils Absolute Auto 0.2 X10*3/uL (0.0-0.4); Hematocrit 36.8 % (37-47); Hemoglobin 12.1 g/dl (12.0-16.0); Imm Gran Abs Auto 0.03 X10*3/uL (0.00-0.03); Imm Gran Pct Auto 0.3 % (0.0-0.4); Lymphocytes Absolute Auto 2.4 X10*3/uL (1.2-4.9); Lymphocytes Percent Auto 25.7 % (20-40); Mean Corpuscular HGB Conc 32.9 g/dl (31.0-35.0); Mean Corpuscular Hemoglobin 27.7 pg (27.0-33.0); Mean Corpuscular Volume 84.2 fL (80-98); Mean Platelet Volume 10.6 fL (9.4-12.3); Monocytes Absolute Auto 0.6 X10*3/uL (0.1-1.2); Monocytes Percent Auto 6.4 % (2-11); Neutrophils Percent Auto 65.2 % (45-73); Platelet Count 273 X10*3/uL (160-400); Red Blood Count 4.37 X10*6/uL (4.20-5.50); Red Cell Distribution Width 12.2 % (11.0-16.0); White Blood Count 9.2 X10*3/uL (4.8-10.8)
[2020-12-05 01:45] LABS: D Dimer < 200 NG/ML
[2020-12-05 01:48] VITALS: BP 115/87; PULSE 74; RESP 18; TEMP 36.8; O2SAT 100; BMI 26.6
[2020-12-05 01:52] VITALS: BP 112/64; PULSE 66; RESP 16; TEMP 36.8; O2SAT 100
[2020-12-05 01:53] VITALS: BP 121/76; PULSE 79; RESP 18; TEMP 36.8; O2SAT 99
[2020-12-05 01:54] VITALS: BP 123/78; PULSE 73; RESP 18; TEMP 36.8; O2SAT 100
[2020-12-05 01:54] LABS: Alanine Aminotransferase 18 U/L (0-31); Albumin Level 3.9 g/dL (3.5-5.0); Alkaline Phosphatase 79 U/L (39-117); Anion Gap 11 (12-20); Aspartate Amino Transferase 18 U/L (5-31); Bilirubin Direct 0.2 mg/dL (0.0-0.5); Bilirubin Total 0.6 mg/dL (0.0-1.0); Blood Urea Nitrogen 12 mg/dL (9-16); Calcium 8.6 mg/dL (8.4-10.2); Carbon Dioxide 24 mmol/L (22-29); Chloride 105 mmol/L (96-108); Estimated Glomerular Filt Rate > 60; Glucose Random 76 mg/dL (60-115); Potassium 3.6 mmol/L (3.3-5.1); Sodium 136 mmol/L (135-145); Total Protein 6.5 g/dL (6.5-8.0)
[2020-12-05 01:56] LABS: COVID-19 Test Negative (Negative); IDNOW Serial# 9DD0AD1C
[2020-12-05 01:58] LABS: Troponin-I High Sensitivity < 3.5 ng/L (<3.5-17.0)
[2020-12-05 02:11] LABS: UPreg QC Valid YES; Urine Pregnancy NEGATIVE (NEGATIVE)
--- NOTE | 2020-12-05 02:12 | ED_ITS ---
HPI - General Adult General Chief complaint: General Medical Stated complaint: Dizzy Time Seen by Provider: 12/05/20 01:18 Source: patient Mode of arrival: ambulatory Limitations: no limitations History of Present Illness HPI narrative: Patient comes emergency room complaining subjective fever, dizzy, nausea, sore throat. Patient states that she was dizzy at work, states that she felt lightheaded, lower herself to the ground, did not lose consciousness. At this time, patient is feeling weak. Patient denies UTI symptoms Related Data Previous Rx's Medication Instructions Recorded Elimite 5 % topical cream 1 applic TOPICAL Q14D #60 g NS 11/29/19 (permethrin) ketoconazole 2 % topical cream 1 applic TOPICAL BID #30 g NS 11/29/19 amoxicillin 500 mg capsule 500 mg PO Q12H 10 Days #20 cap 05/05/20 ibuprofen 600 mg tablet 600 mg PO Q6H PRN #30 tab 05/05/20 ondansetron 4 mg disintegrating 4 mg PO Q6-8H PRN #7 tab 07/04/20 tablet hydrocodone-homatropine 5 mg-1.5 5 ml PO Q6H PRN #60 ml 08/29/20 mg/5 mL (5 mL) oral syrup (Hycodan) amoxicillin 875 mg tablet 875 mg PO BID #20 tab 08/30/20 ibuprofen 600 mg tablet 600 mg PO Q6H PRN #20 tab 08/30/20 acetaminophen 500 mg capsule 500 mg PO Q6H PRN #20 cap 12/05/20 ondansetron HCl 4 mg tablet 4 mg PO Q6H PRN #14 tab 12/05/20 (Zofran) Allergies Allergy/AdvReac Type Severity Reaction Status Date / Time No Known Allergies Allergy Verified 08/29/20 19:01 Review of Systems Review of Systems: Constitutional : No Weight loss, No Fever, No Chills, No Night Sweats, complaining of fatigue, generalized malaise ENT/Mouth : No Hearing loss, No Ear Pain, No Nasal Congestion, No Sinus Pain, No Hoarseness, complaining of sore throat, No Rhinorrhea, No Swallowing Difficulty Eyes: No Eye Pain, No Swelling, No Redness, No Foreign Body, No Discharge, No Vision Changes Cardiovascular : No Chest Pain, No SOB, No Dyspnea on Exertion, No Orthopnea, No Edema, No Palpitations Respiratory : Complaining of Cough, No Sputum, No Wheezing, No Smoke Exposure, No Dyspnea Gastrointestinal : No Nausea, No Vomiting, No Diarrhea, No Constipation, No abdominal Pain, No Hematochezia, No Melena Genitourinary : no irregular bleeding, No Dysuria, No Urinary Frequency, No Hematuria, No Urinary Incontinence, No Urgency, No Flank Pain, No Urinary Flow Changes, No Hesitancy Musculoskeletal : No joint pain, No Myalgias, No Joint Swelling Skin : No Skin Lesions, No rash Neuro : No Weakness, No Numbness, No Paresthesias, No Loss of Consciousness, No Dizziness, No Headache Psych : No Anxiety/Panic, No Depression, No SI/HI/AH/VH, No Social Issues, Heme/Lymph: No Bruising, No Bleeding,No Lymphadenopathy Endocrine : No Polyuria, No Polydipsia, No Temperature Intolerance [facility] Past Medical History Medical History Migraine Sinus pain Surgical History S/P lumpectomy, right breast Social History Social History Alcohol intake: never Advance Directives: No Advance Directives Information Provided: No Patient : No Physical Exam Vital Signs: Vital Signs: Last Vital Signs Temp 98.3 F 12/05/20 01:54 Pulse 73 12/05/20 01:54 Resp 18 12/05/20 01:54 BP 123/78 12/05/20 01:54 Pulse Ox 100 12/05/20 01:54 Body Mass Index 26.6 Const: Other: Appearance: Alert. Oriented X3. No acute distress. Well- appearing Eyes: Pupils equal, round and reactive to light. ENT: Pharynx normal. No exudates, no abscesses Neck: Normal inspection. Neck supple. No lymph nodes noted. No crepitus CVS: Normal heart rate and rhythm. Pulses normal. Normal S1 and S2 Respiratory: No respiratory distress. Breath sounds normal. No Wheezing. No rales Abdomen: Soft and nontender. No rigidity. No distention. good BS x4 Skin: Skin warm and dry. Normal skin color. Normal skin turgor. Extremities: No lower extremity edema. No Lacerations. No Rash Neuro: Oriented X 3. No motor deficit. No sensory deficit. Moving all extermities. No slurred speech. Course Course Course Narrative: Patient labs do not show any acute pathology. test negative, COVID test negative. Patient likely having a viral syndrome Medical Decision Making Lab Data Result diagrams: 12/05/20 01:29 12/05/20 01:29 Labs: Lab Results 12/05/20 12/05/20 12/05/20 Range/Units : 01:29 01:29 WBC 9.2 (4.8-10.8) X10*3/uL RBC 4.37 (4.20-5.50) X10*6/uL Hgb 12.1 (12.0-16.0) g/dl Hct 36.8 L (37-47) % MCV 84.2 (80-98) fL MCH 27.7 (27.0-33.0) pg MCHC 32.9 (31.0-35.0) g/dl RDW 12.2 (11.0-16.0) % Plt Count 273 (160-400) X10*3/uL MPV 10.6 (9.4-12.3) fL Immature Gran % (Auto) 0.3 (0.0-0.4) % Neut % (Auto) 65.2 (45-73) % Lymph % (Auto) 25.7 (20-40) % [place] % (Auto) 6.4 (2-11) % Eos % (Auto) 2.0 (0-4) % Baso % (Auto) 0.4 (0-2) % Lymph # (Auto) 2.4 (1.2-4.9) X10*3/uL [place] # (Auto) 0.6 (0.1-1.2) X10*3/uL Eos # (Auto) 0.2 (0.0-0.4) X10*3/uL Baso # (Auto) 0.0 (0.0-0.2) X10*3/uL Abs Immat Gran (auto) 0.03 (0.00-0.03) X10*3/uL Absolute Neuts (auto) 6.0 (2.0-8.3) X10*3/uL Absolute Nucleated RBC 0.000 (0.0-0.012) X10*3/uL Nucleated RBC % (auto) 0.0 (0.0-0.2) /100WBC D-Dimer < 200 NG/ML Sodium 136 (135-145) mmol/L Potassium 3.6 (3.3-5.1) mmol/L Chloride 105 (96-108) mmol/L Carbon Dioxide 24 (22-29) mmol/L Anion Gap 11 L (12-20) BUN 12 (9-16) mg/dL Creatinine 0.80 (0.5-1.4) mg/dL Estim Creat Clear Calc 111.0 Estimated GFR > 60 Random Glucose 76 (60-115) mg/dL Calcium 8.6 D (8.4-10.2) mg/dL Total Bilirubin 0.6 (0.0-1.0) mg/dL Direct Bilirubin 0.2 (0.0-0.5) mg/dL AST 18 (5-31) U/L ALT 18 (0-31) U/L Alkaline Phosphatase 79 (39-117) U/L Troponin I High Sens (<3.5-17.0) ng/L Total Protein 6.5 (6.5-8.0) g/dL Albumin 3.9 (3.5-5.0) g/dL Urine Test (NEGATIVE) COVID-19 ([facility]) (Negative) COVID-19 Clin Com 12/05/20 12/05/20 12/05/20 Range/Units 01:29 01:30 02:03 WBC (4.8-10.8) X10*3/uL RBC (4.20-5.50) X10*6/uL Hgb (12.0-16.0) g/dl Hct (37-47) % MCV (80-98) fL MCH (27.0-33.0) pg MCHC (31.0-35.0) g/dl RDW (11.0-16.0) % Plt Count (160-400) X10*3/uL MPV (9.4-12.3) fL Immature Gran % (Auto) (0.0-0.4) % Neut % (Auto) (45-73) % Lymph % (Auto) (20-40) % [place] % (Auto) (2-11) % Eos % (Auto) (0-4) % Baso % (Auto) (0-2) % Lymph # (Auto) (1.2-4.9) X10*3/uL [place] # (Auto) (0.1-1.2) X10*3/uL Eos # (Auto) (0.0-0.4) X10*3/uL Baso # (Auto) (0.0-0.2) X10*3/uL Abs Immat Gran (auto) (0.00-0.03) X10*3/uL Absolute Neuts (auto) (2.0-8.3) X10*3/uL Absolute Nucleated RBC (0.0-0.012) X10*3/uL Nucleated RBC % (auto) (0.0-0.2) /100WBC D-Dimer NG/ML Sodium (135-145) mmol/L Potassium (3.3-5.1) mmol/L Chloride (96-108) mmol/L Carbon Dioxide (22-29) mmol/L Anion Gap (12-20) BUN (9-16) mg/dL Creatinine (0.5-1.4) mg/dL Estim Creat Clear Calc Estimated GFR Random Glucose (60-115) mg/dL Calcium (8.4-10.2) mg/dL Total Bilirubin (0.0-1.0) mg/dL Direct Bilirubin (0.0-0.5) mg/dL AST (5-31) U/L ALT (0-31) U/L Alkaline Phosphatase (39-117) U/L Troponin I High Sens < 3.5 (<3.5-17.0) ng/L Total Protein (6.5-8.0) g/dL Albumin (3.5-5.0) g/dL Urine Test NEGATIVE (NEGATIVE) COVID-19 ([facility]) Negative (Negative) COVID-19 Clin Com See Note Discharge Plan Discharge Clinical Impression: Acute viral syndrome Patient Disposition: Home, Self-Care Instructions: Viral Syndrome (ED) Additional Instructions: Please follow-up with your primary care physician tomorrow. If you have any worsening or new symptoms, please return to the emergency room or call 911 Prescriptions: New ondansetron HCl [Zofran] 4 mg tablet 4 mg PO Q6H PRN (Reason: nausea and vomiting) Qty: 14 RF: 0 acetaminophen 500 mg capsule 500 mg PO Q6H PRN (Reason: fever or pain) Qty: 20 RF: 0 No Action ondansetron 4 mg tablet,disintegrating 4 mg PO Q6-8H PRN (Reason: nausea and vomiting) Qty: 7 RF: 0 amoxicillin 875 mg tablet 875 mg PO BID Qty: 20 RF: 0 ibuprofen 600 mg tablet 600 mg PO Q6H PRN (Reason: pain) Qty: 20 RF: 0 permethrin [Elimite] 5 % cream 1 applic topical Q14D Qty: 60 RF: 1 ketoconazole 2 % cream 1 applic topical BID Qty: 30 RF: 0 amoxicillin 500 mg capsule 500 mg PO Q12H 10 Days Qty: 20 RF: 0 ibuprofen 600 mg tablet 600 mg PO Q6H PRN (Reason: fever or pain) Qty: 30 RF: 0 hydrocodone-homatropine [Hycodan] 5-1.5 mg/5 mL (5 mL) syrup 5 ml PO Q6H PRN (Reason: cough) Qty: 60 RF: 0
[2020-12-05 02:21] LABS: Amphetamine Screen Urine Not Detected (Not Detect); Barbiturates, Urine Not Detected (Not Detect); Benzodiazepines Screen Urine Not Detected (Not Detect); Cannabinoid Screen Urine Not Detected (Not Detect); Cocaine Screen Urine Not Detected (Not Detect); Fentanyl, urine Not Detected (Not Detect); Opiate Screen Urine Not Detected (Not Detect); Phencyclidine Screen Urine Not Detected (Not Detect)
== END 2020-12-05 03:38 | disposition home or self-care (01) ==
PROVIDERS: Emergency Provider Emergency Medicine
DX: B34.9 Viral infection, unspecified (principal); J02.9 Acute pharyngitis, unspecified; Z20.822 Contact with and (suspected) exposure to COVID-19
CPT/HCPCS: 36415; 80048; 80076; 80307; 81025; 84484; 85025; 85379; 87635; 93005; 99284

== ENCOUNTER 2021-04-13 22:48 | Emergency (ER) | payer OTHER, SELFPAY ==
--- NOTE | ~2021-04-13 | CT_ITS ---
EXAMINATION: CT FACIAL BONES WITHOUT CONTRAST CLINICAL INFORMATION: Left TMJ injury COMPARISON: None TECHNIQUE: Noncontrast multidetector helical imaging was performed through the maxillofacial bones. Coronal and sagittal reformatted images were created. This CT examination was performed using dose optimization techniques as appropriate, variously including the following: *Automated exposure control *Adjustment of mA and/or kV according to patient size (this includes techniques or standardized protocols for targeted exams where dose is matched to indication/reason for exam; i.e. extremities or head) *Use of iterative reconstruction technique DLP: 377 mGy-cm FINDINGS: No acute maxillofacial fractures are seen. The mandibular condyles are well-seated in the condylar fossa. There is partial opacification of the right ethmoid air cells. Small mucous retention cyst in the inferior left maxillary sinus. Remaining paranasal sinuses are well-aerated. The uncinate process is normal bilaterally. The infundibula are patent. There is rightward deviation of the nasal septum. Mastoid air cells are well-aerated bilaterally. The orbits demonstrate a normal appearance bilaterally. The globes are intact, and there are no suspicious findings to suggest retrobulbar hemorrhage. Visualized portions of the brain parenchyma are unremarkable. CT/CT facial bones wo con IMPRESSION: No acute traumatic findings identified.
[2021-04-13 23:15] VITALS: BP 136/85; PULSE 76; RESP 16; TEMP 37; O2SAT 100; BMI 25.7
[2021-04-14 01:37] VITALS: BP 124/76; PULSE 83; RESP 16; TEMP 36.6; O2SAT 99
[2021-04-14 03:08] LABS: Appearance Urine CLEAR; Color Urine YELLOW; Glucose Urine UA NEG (NEG); Leukocyte Esterase Urine NEG (NEG); Nitrite Urine NEG (NEG); PH 7.5 (5.0-8.0); Urine Blood NEG (NEG); Urine Ketones NEG (NEG); Urine Protein NEG (NEG-TRACE)
[2021-04-14] MEDS: Acetaminophen 325 MG TABLET 975 MG PO (03:08)
[2021-04-14 03:11] LABS: UPreg QC Valid YES; Urine Pregnancy NEGATIVE (NEGATIVE)
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
[2021-04-14] MEDS: Ibuprofen 400 MG TABLET PO (06:41)
== END 2021-04-14 06:47 | disposition home or self-care (01) ==
PROVIDERS: Emergency Provider Student in an Organized Health Care Education/Training Program; PCP Nurse Practitioner Family
DX: R68.84 Jaw pain (principal)
CPT/HCPCS: 70486; 81003; 81025; 99284

== ENCOUNTER 2021-05-31 13:18 | Emergency (ER) | payer OTHER, SELFPAY ==
--- NOTE | ~2021-05-31 | XR_ITS ---
EXAMINATION: XR ANKLE, RIGHT CLINICAL INFORMATION: Right ankle pain after fall COMPARISON: None TECHNIQUE: AP, lateral, and mortise views of the right ankle. FINDINGS: The bones and soft tissues are normal. No fracture. Alignment is anatomic. Joint spaces are maintained. No joint effusion. XR/XR ankle RT 2V IMPRESSION: Normal right ankle.
[2021-05-31 13:24] VITALS: BP 101/61; PULSE 80; RESP 16; TEMP 36.3; O2SAT 96; BMI 25.7
--- NOTE | 2021-05-31 14:06 | ED.GENADULT ---
HPI - General Adult General Chief complaint: Fall Stated complaint: r ankle inj fall Time Seen by Provider: 05/31/21 14:06 Source: patient Mode of arrival: ambulatory Limitations: no limitations History of Present Illness HPI narrative: Patient is a 20 year old female presenting to the emergency department today with right ankle pain. Patient states that she twisted her right ankle when she stepped into a pot hole. Patient denies any loss of consciousness or hitting her head with the incident. Patient denies any dizziness, lightheadedness, abdominal pain, nausea, vomiting, fever, chills, blurry vision, double vision, loss of vision, chest pain, difficulty breathing, shortness of breath, back pain, night sweats, pain with urination, increased urinary frequency, increased urinary urgency, blood in her urine or stool, syncope or a near syncopal episode, bowel incontinence, bladder incontinence, bowel retention, bladder retention, or any other complaints at this time. Onset (ago): hour(s) Location: lower extremity Radiation: non-radiation Severity: mild Severity scale (1-10): 3 Quality: dull Pain Consistency: constant Relieving factors: none Exacerbating factors: none Associated symptoms: denies other symptoms Treatments prior to arrival: none Related Data Previous Rx's Medication Instructions Recorded Elimite 5 % topical cream 1 applic TOPICAL Q14D #60 g NS 11/29/19 (permethrin) ketoconazole 2 % topical cream 1 applic TOPICAL BID #30 g NS 11/29/19 amoxicillin 500 mg capsule 500 mg PO Q12H 10 Days #20 cap 05/05/20 ibuprofen 600 mg tablet 600 mg PO Q6H PRN #30 tab 05/05/20 ondansetron 4 mg disintegrating 4 mg PO Q6-8H PRN #7 tab 07/04/20 tablet hydrocodone-homatropine 5 mg-1.5 5 ml PO Q6H PRN #60 ml 08/29/20 mg/5 mL (5 mL) oral syrup (Hycodan) amoxicillin 875 mg tablet 875 mg PO BID #20 tab 08/30/20 ibuprofen 600 mg tablet 600 mg PO Q6H PRN #20 tab 08/30/20 acetaminophen 500 mg capsule 500 mg PO Q6H PRN #20 cap 12/05/20 ondansetron HCl 4 mg tablet 4 mg PO Q6H PRN #14 tab 12/05/20 (Zofran) Allergies Allergy/AdvReac Type Severity Reaction Status Date / Time No Known Allergies Allergy Verified 05/31/21 13:29 Review of Systems Constitutional: Constitutional: Reports no additional constitutional complaints, Denies chills, Denies fever(s) and Denies night sweats Eyes: Eyes: Reports no additional eye complaints, Denies blurry vision, Denies change in vision, Denies diplopia, Denies eye discharge, Denies loss of vision and Denies eye pain ENT: Denies dizziness Cardiovascular: Cardiovascular: Reports no additional cardiovascular complaints, Denies chest pain, Denies lightheadedness, Denies Loss of Consciousness and Denies dyspnea Respiratory: Respiratory: Reports no additional respiratory complaints and Denies dyspnea Gastrointestinal: Gastrointestinal: Reports no additional gastrointestinal complaints, Denies abdominal pain, Denies melena, Denies hematochezia, Denies change in bowel habits and Denies change in stool character Genitourinary: Genitourinary: Denies hematuria, Denies urinary frequency, Denies dysuria, Denies urinary incontinence, Denies urinary hesitancy and Denies urinary urgency Musculoskeletal: Musculoskeletal: Reports no additional musculoskeletal complaints, Denies numbness and Denies tingling Comments: right ankle pain Neurologic: Denies dizziness, Denies loss of vision, Denies numbness and Denies tingling Psychiatric: Psychiatric: Reports no additional psychiatric complaints Endocrine: Endocrine: Reports no additional endocrine complaints Hematologic/Lymphatic: Hematologic/Lymphatic: Reports no additional hematologic/lymphatic complaints Allergic/Immunologic: Allergic/Immunologic: Reports no additional allergic/immunologic complaints [facility] Past Medical History Attestation statement: The following information was validated with the patient. Source: old records reviewed Medical History Migraine Sinus pain Surgical History S/P lumpectomy, right breast Social History Social History Alcohol intake: unknown Patient Tobacco Use Status: Tobacco use Unknown Advance Directives: No Advance Directives Information Provided: No Physical Exam ED Vital Signs: Vital Signs - 24 hr 05/31/21 13:24 Temperature 97.4 F Pulse Rate 80 Respiratory Rate 16 Blood Pressure 101/61 Pulse Oximetry 96 BMI result Body Mass Index 25.7 Const General: cooperative, no acute distress, alert and awake Nutritional Appearance: well nourished Orientation/consciousness: patient oriented x3 Limitations: no limitations HENMT Head: Yes normal to inspection and Yes atraumatic Ears: hearing grossly normal bilaterally and external ears normal General nose exam: Normal external nose present, no nasal discharge noted and no epistaxis Face and sinus: Yes normal facial exam, No abrasion and No laceration Mouth: Normal oral and palatal mucosa present, no drooling and no muffled voice Eyes General: appearance normal, both eyes and all related structures Periorbital: periorbital findings normal Eyelids: Yes eyelids normal Conjunctivae: conjunctivae normal Pupils: Equal, round and reactive pupils present EOM: EOMs intact bilaterally Neck Neck: Yes normal visual inspection, Yes full ROM and Yes no lymphadenopathy Chest Chest palpation & inspection: normal inspection of the chest Resp Effort & Inspection: normal respiratory effort and able to speak in complete sentences Auscultation: clear to auscultation bilaterally Cardio Rate: regular rate Rhythm: regular rhythm GI Inspection: Yes normal to inspection Neuro General: patient oriented x3 and moves all extremities Cranial nerves: Yes Equal, round and reactive pupils present Cognition (Neuro): normal cognition Motor exam (neuro): 5/5 motor strength present throughout Sensory Exam: Normal double simultaneous stimulation for sensation Coordination: [id number] test normal Extrem General: Yes normal to inspection, Yes full ROM and Yes capillary refill normal Psych Appearance: grossly normal Mental Status: mental status grossly normal Affect: normal affect Attitude: cooperative Thought process: Normal thought process present Thought content: Normal thought content present Insight: Good insight present (Psych) Procedures Orthopedic Splinting/Casting Injury #1: Side: right Lower Extremity Injury Location: ankle Lower Extremity Immobilizer: [employer] Other Orthopedic Equipment: crutches Medical Decision Making MDM Narrative Medical decision making narrative: Patient is a 20 year old female presenting to the emergency department today with right ankle pain. Patient's physical exam was unremarkable. Patient's right ankle x-ray showed no acute process. I explained my physical exam findings as well as all test results to the patient. I answered all questions asked by the patient. Patient's right ankle was placed in a Velcro splint, without incident. Patient was given crutches and crutch training. I stressed the importance of the patient taking her medication as prescribed. I stressed the importance of the patient following up with her primary care provider and an orthopedist. I stressed the importance of the patient returning to the emergency department immediately if her symptoms were to worsen or if she were to develop any dizziness, shortness of breath, difficulty breathing, chest pain, blurry vision, loss of vision, nausea, vomiting, abdominal pain, fever, chills, back pain, or any other complaints. Patient verbalized agreement and understanding with this treatment plan and discharge. Differential Diagnosis Differential Diagnosis: right ankle fracture, right ankle sprain Medical Records Medical records reviewed: Yes I reviewed the patient's medical records. Imaging Data Right ankle x-ray: Attestation: I personally reviewed and interpreted this imaging study as follows: My impression: No acute fracture. Radiologist's impression: EXAMINATION: XR ANKLE, RIGHT CLINICAL INFORMATION: Right ankle pain after fall? COMPARISON: None? TECHNIQUE: AP, lateral, and mortise views of the right ankle. FINDINGS: The bones and soft tissues are normal. No fracture. Alignment is anatomic. Joint spaces are maintained. No joint effusion.? XR/XR ankle RT 2V IMPRESSION: Normal right ankle. Dictated By: Horace Still MD Signed By: Electronically signed by Horace Still MD 05/31/21 9250 Discharge Plan Discharge Clinical Impression: Ankle sprain Patient Disposition: Home, Self-Care Additional Instructions: Follow up with your primary care provider and an orthopedist. Return to the emergency department immediately if your symptoms worsen or if you develop any dizziness, shortness of breath, difficulty breathing, chest pain, blurry vision, loss of vision, nausea, vomiting, abdominal pain, fever, chills, back pain, or any other complaints. Prescriptions: No Action ondansetron 4 mg tablet,disintegrating 4 mg PO Q6-8H PRN (Reason: nausea and vomiting) Qty: 7 0RF amoxicillin 875 mg tablet 875 mg PO BID Qty: 20 0RF ibuprofen 600 mg tablet 600 mg PO Q6H PRN (Reason: pain) Qty: 20 0RF permethrin [Elimite] 5 % cream 1 applic topical Q14D Qty: 60 1RF Rx Instructions: apply second treatment 14 days after first treatment if live lice remain ketoconazole 2 % cream 1 applic topical BID Qty: 30 0RF amoxicillin 500 mg capsule 500 mg PO Q12H 10 Days Qty: 20 0RF ibuprofen 600 mg tablet 600 mg PO Q6H PRN (Reason: fever or pain) Qty: 30 0RF hydrocodone-homatropine [Hycodan] 5-1.5 mg/5 mL (5 mL) syrup 5 ml PO Q6H PRN (Reason: cough) Qty: 60 0RF ondansetron HCl [Zofran] 4 mg tablet 4 mg PO Q6H PRN (Reason: nausea and vomiting) Qty: 14 0RF acetaminophen 500 mg capsule 500 mg PO Q6H PRN (Reason: fever or pain) Qty: 20 0RF Referrals: [facility] [place] [facility]geons [Provider Group] Stand Alone Forms: Work/School Release Interventions: ED Discharge Assessment Last Done: 05/31/21 16:03 Discharge Date/Time: 05/31/21 16:05 Print Language: Kyrgyz
== END 2021-05-31 16:05 | disposition home or self-care (01) ==
PROVIDERS: Emergency Provider Student in an Organized Health Care Education/Training Program; PCP Nurse Practitioner Family
DX: S93.401A Sprain of unspecified ligament of right ankle, initial encounter (principal); M25.571 Pain in right ankle and joints of right foot; X50.1XXA Overexertion from prolonged static or awkward postures, initial encounter; Y93.9 Activity, unspecified; Y92.9 Unspecified place or not applicable; Y99.9 Unspecified external cause status; Z79.899 Other long term (current) drug therapy
CPT/HCPCS: 29515; 73600; 99283; 99284

== ENCOUNTER 2021-06-09 15:57 | Emergency (ER) | payer OTHER, SELFPAY ==
[2021-06-09 16:11] VITALS: BP 109/64; PULSE 81; RESP 16; TEMP 36.6; O2SAT 99; BMI 25.0
--- NOTE | 2021-06-09 17:25 | ED.FEMALEGU ---
HPI - Female Genitourinary General Chief complaint: Urogenital-Female Stated complaint: vaginal bleeding ? tampon Time Seen by Provider: 06/09/21 16:42 Source: patient Mode of arrival: ambulatory Limitations: no limitations History of Present Illness HPI Narrative: 20 yo female presents to the ER for evaluation of a possible tampon stuck inside of her vagina. She reports drinking heavy amounts of alcohol last night and thinks she may have put 2 tampons in. She removed one this morning but thinks there may be another one inside. She has some pelvic cramping that is usual for her menses. She says she is bleeding heavier than normal. She denies any foul smelling discharge or discharge other than blood. MD elicited complaint: vaginal bleeding and other Onset (ago): day(s) Location of symptoms: vaginal Severity: moderate Female Urogenital Radiation: Non-Radiating Severity scale (1-10): 5 Quality of pain: cramping Consistency: intermittent Vaginal discharge: none Vaginal bleeding: heavy Relieving factors: none Associated symptoms: denies other symptoms Treatment prior to arrival: none Sexual activity: No Patient : No Related Data Previous Rx's Medication Instructions Recorded Elimite 5 % topical cream 1 applic TOPICAL Q14D #60 g NS 11/29/19 (permethrin) ketoconazole 2 % topical cream 1 applic TOPICAL BID #30 g NS 11/29/19 amoxicillin 500 mg capsule 500 mg PO Q12H 10 Days #20 cap 05/05/20 ibuprofen 600 mg tablet 600 mg PO Q6H PRN #30 tab 05/05/20 ondansetron 4 mg disintegrating 4 mg PO Q6-8H PRN #7 tab 07/04/20 tablet hydrocodone-homatropine 5 mg-1.5 5 ml PO Q6H PRN #60 ml 08/29/20 mg/5 mL (5 mL) oral syrup (Hycodan) amoxicillin 875 mg tablet 875 mg PO BID #20 tab 08/30/20 ibuprofen 600 mg tablet 600 mg PO Q6H PRN #20 tab 08/30/20 acetaminophen 500 mg capsule 500 mg PO Q6H PRN #20 cap 12/05/20 ondansetron HCl 4 mg tablet 4 mg PO Q6H PRN #14 tab 12/05/20 (Zofran) Allergies Allergy/AdvReac Type Severity Reaction Status Date / Time No Known Allergies Allergy Verified 06/09/21 16:14 Review of Systems Review of Systems: Constitutional: No Fever, No Chills Cardiovascular: No Chest Pain, No SOB Gastrointestinal: No Nausea, No Vomiting, No abdominal Pain, No Hematochezia, No Melena Genitourinary: No Dysuria, No Urinary Frequency, No Hematuria, +vaginal bleeding Musculoskeletal: No joint pain, No Myalgias Skin: No Skin Lesions, No rash Neuro: No Weakness, No Dizziness, No Headache Heme/Lymph: No Bruising, No Lymphadenopathy PMFSH Past Medical History Medical History Migraine Sinus pain Surgical History S/P lumpectomy, right breast Social History Social History Alcohol intake: unknown Patient Tobacco Use Status: Tobacco use Unknown Advance Directives: No Advance Directives Information Provided: No Patient : No Physical Exam Vital Signs: Vital Signs: Last Vital Signs Temp 97.9 F 06/09/21 16:11 Pulse 81 06/09/21 16:11 Resp 16 06/09/21 16:11 BP 109/64 06/09/21 16:11 Pulse Ox 99 06/09/21 16:11 BMI result Body Mass Index 25.0 Appearance: Alert. Oriented X3. No acute distress. HEENT: normal inspection CVS: Normal heart rate and rhythm. Pulses normal. Respiratory: No respiratory distress. Skin: Skin warm and dry. Normal skin color. Normal skin turgor. No rashes. Abd: normal inspection, soft NTND. Pelvic: moderate amount of red blood in the vaginal canal with normal appearing cervix, no visualization of a foreign body, no discharge Extremities: normal inspection, normal ROM Neuro: Oriented X 3. No motor deficit. No sensory deficit. Course Course Course Narrative: 20 yo female presenting for evaluation of possible tampon stuck in her vagina. On examination there is no visualization of a FB. Moderate amount of bleeding was cleared with Q-tip and after careful inspection no tampon was seen. She was counseled on signs of retained FB. Stable for d/c home. Discharge Plan Discharge Clinical Impression: Dysmenorrhea Patient Disposition: Home, Self-Care Instructions: Dysmenorrhea (ED) Additional Instructions: No retained tampon was seen on examination today If you develop foul smelling discharge or increased or different pain call your doctor or come back to the ER for further evaluation Prescriptions: No Action ondansetron 4 mg tablet,disintegrating 4 mg PO Q6-8H PRN (Reason: nausea and vomiting) Qty: 7 0RF amoxicillin 875 mg tablet 875 mg PO BID Qty: 20 0RF ibuprofen 600 mg tablet 600 mg PO Q6H PRN (Reason: pain) Qty: 20 0RF permethrin [Elimite] 5 % cream 1 applic topical Q14D Qty: 60 1RF Rx Instructions: apply second treatment 14 days after first treatment if live lice remain ketoconazole 2 % cream 1 applic topical BID Qty: 30 0RF amoxicillin 500 mg capsule 500 mg PO Q12H 10 Days Qty: 20 0RF ibuprofen 600 mg tablet 600 mg PO Q6H PRN (Reason: fever or pain) Qty: 30 0RF hydrocodone-homatropine [Hycodan] 5-1.5 mg/5 mL (5 mL) syrup 5 ml PO Q6H PRN (Reason: cough) Qty: 60 0RF ondansetron HCl [Zofran] 4 mg tablet 4 mg PO Q6H PRN (Reason: nausea and vomiting) Qty: 14 0RF acetaminophen 500 mg capsule 500 mg PO Q6H PRN (Reason: fever or pain) Qty: 20 0RF
== END 2021-06-09 18:22 | disposition home or self-care (01) ==
PROVIDERS: Emergency Provider Emergency Medicine Emergency Medical Services
DX: N94.6 Dysmenorrhea, unspecified (principal)
CPT/HCPCS: 99283

== ENCOUNTER 2021-07-11 18:03 | Emergency (ER) | payer OTHER, SELFPAY ==
[2021-07-11 18:15] VITALS: BP 122/71; PULSE 84; RESP 18; TEMP 37.1; O2SAT 100; BMI 25.0
--- NOTE | 2021-07-11 18:25 | ED.WOUNDLAC ---
HPI - Wound/Laceration General Chief Complaint: Wound/Laceration <ANGEL Deshpande Last Filed: 07/11/21 20:37> Stated Complaint: left breast bleeding/dizziness <ANGEL Deshpande Last Filed: 07/11/21 20:37> Time Seen by Provider: 07/11/21 18:25 <ANGEL Deshpande Last Filed: 07/11/21 20:37> Source: patient <ANGEL Deshpande Last Filed: 07/11/21 20:37> Mode of arrival: ambulatory <ANGEL Deshpande Last Filed: 07/11/21 20:37> Limitations: no limitations <ANGEL Deshpande Last Filed: 07/11/21 20:37> History of Present Illness HPI narrative: 20-year-old female presenting to the emergency department with bleeding/discharge from left breast. Patient tells me that she had a breast reduction done at when hospital today , since then her left breast has been bleeding, the explained to her that a little bit of blood was okay however she is saturating through ABD pads. Patient reports pain to the left breast, right breast with no complaints. Patient unsure who did her surgery. Denies trauma to the area. She does tell me however, that this surgery was done earlier today and she was discharged home. Denies any other medical complaints at this time <ANGEL Deshpande Last Filed: 07/11/21 20:37> Onset (ago): day(s) (1) <ANGEL Deshpande Last Filed: 07/11/21 20:37> Place: home <ANGEL Deshpande Last Filed: 07/11/21 20:37> Patient tetanus UTD: Yes <ANGEL Deshpande Last Filed: 07/11/21 20:37> Associated symptoms: none <ANGEL Deshpande Last Filed: 07/11/21 20:37> Related Data Home Medications: Previous Rx's Medication Instructions Recorded Elimite 5 % topical cream 1 applic TOPICAL Q14D #60 g NS 11/29/19 (permethrin) ketoconazole 2 % topical cream 1 applic TOPICAL BID #30 g NS 11/29/19 amoxicillin 500 mg capsule 500 mg PO Q12H 10 Days #20 cap 05/05/20 ibuprofen 600 mg tablet 600 mg PO Q6H PRN #30 tab 05/05/20 ondansetron 4 mg disintegrating 4 mg PO Q6-8H PRN #7 tab 07/04/20 tablet hydrocodone-homatropine 5 mg-1.5 5 ml PO Q6H PRN #60 ml 08/29/20 mg/5 mL (5 mL) oral syrup (Hycodan) amoxicillin 875 mg tablet 875 mg PO BID #20 tab 08/30/20 ibuprofen 600 mg tablet 600 mg PO Q6H PRN #20 tab 08/30/20 acetaminophen 500 mg capsule 500 mg PO Q6H PRN #20 cap 12/05/20 ondansetron HCl 4 mg tablet 4 mg PO Q6H PRN #14 tab 12/05/20 (Zofran) doxycycline hyclate 100 mg capsule 100 mg PO BID 7 Days #14 cap 07/11/21 metronidazole 500 mg tablet 500 mg PO BID 7 Days #14 tab 07/11/21 <ANGEL Deshpande Last Filed: 07/11/21 20:37> Allergies/Adverse Reactions: Allergies Allergy/AdvReac Type Severity Reaction Status Date / Time No Known Allergies Allergy Verified 06/09/21 16:14 <ANGEL Deshpande Last Filed: 07/11/21 20:37> Review of Systems Review of Systems: Constitutional : No Fever, No Chills, Cardiovascular : No Chest Pain, No SOB Respiratory : No Dyspnea Gastrointestinal : No abdominal pain Musculoskeletal : No Joint Swelling Skin : No rash, No skin laceration, Neuro : No Weakness, No Numbness Psych : No SI/HI <ANGEL Deshpande Last Filed: 07/11/21 20:37> Yes all other systems are reviewed and are negative <ANGEL Deshpande Last Filed: 07/11/21 20:37> [facility] Past Medical History Attestation statement: The following information was validated with the patient. <ANGEL Deshpande Last Filed: 07/11/21 20:37> Source: old records reviewed and nursing notes reviewed <ANGEL Deshpande - Last Filed: 07/11/21 20:37> Medical History: Medical History Migraine Sinus pain <ANGEL Deshpande - Last Filed: 07/11/21 20:37> Surgical History: Surgical History S/P lumpectomy, right breast <ANGEL eDshpande - Last Filed: 07/11/21 20:37> Social History Social History: Social History Alcohol intake: unknown Patient Tobacco Use Status: Tobacco use Unknown Advance Directives: No Advance Directives Information Provided: No <ANGEL Deshpande - Last Filed: 07/11/21 20:37> Physical Exam Vital Signs: Vital Signs: Last Vital Signs Temp 98.8 F 07/11/21 18:15 Pulse 84 07/11/21 19:00 Resp 16 07/11/21 19:00 BP 116/61 07/11/21 19:00 Pulse Ox 99 07/11/21 19:00 BMI result Body Mass Index 25.0 Vital signs stable <ANGEL Deshpande - Last Filed: 07/11/21 20:37> Appearance: Alert.? Oriented X3.? No acute distress.? Head: Normocephalic, atraumatic, no step-offs or deformities Eyes: Pupils equal, round and reactive to light.? ENT: Pharynx normal.? Neck: Normal inspection.? Neck supple.? CVS: Normal heart rate and rhythm.? Pulses normal.? Respiratory: No respiratory distress.? Breath sounds normal.? Abdomen: Soft and nontender.? Skin: Skin warm and dry.? Normal skin color.? Normal skin turgor.? Breast exam: Right breast with postoperative dressings on it, minimal blood noted on dressing. Left breast with large amount of blood, saturating ABD pad, blood appears to be coming from the inferior portion of the breast. Pain with palpation to bilateral breasts. Extremities: No lower extremity edema.? No calf ttp. 5/5 strength to bilateral upper and lower extremities Back: No midline tenderness, no C-spine tenderness, full range of motion, no CVA tenderness bilaterally Neuro: Oriented X 3.? No motor deficit.? No sensory deficit. CN 2-12 intact <ANGEL Deshpande - Last Filed: 07/11/21 20:37> Course Reevaluation(s) Reevaluation #1: Spoke to general surgery oncall doctor who went through patient note. SQ sutures in placed. Dr. Rian Jones did this surgery. They recommend not touching the dressings. They recommend speaking to . <ANGEL Deshpande Last Filed: 07/11/21 20:37> Time: 19:08 <ANGEL Deshpande - Last Filed: 07/11/21 20:37> Reevaluation #2: Call to [facility] to speak to who tells me she had fluid injected to the breast in surgery. He tells me its ok to remove the tape on the left side and replace. He recommends for us to apply pressure to the area and to apply one stitch if needed. If patient continues to bleed she should be transferred to [facility]. They can potentially see her tomorrow. Unlikely arterial bleed or entrapped heamatoma per Dr. Jones. Advises xerfome and vasaline. Also, patient is requesting to be tested gonorrhea and chlamydia as she had sex without protection. She tells me that she might as well get tested and treated since she is here. Patient's laboratory studies significant for a leukocytosis and slight anemia. Leukocytosis likely secondary to stress reaction/postop state. Patient with no other medical complaints. Denies upper respiratory symptoms, urinary symptoms. Chemistry with no acute electrolyte abnormalities requiring intervention. <ANGEL Deshpande Last Filed: 07/11/21 20:37> Time: 20:18 <ANGEL Deshpande - Last Filed: 07/11/21 20:37> Reevaluation #3: Upon re-evaluation, patient holding pressure to the area for 10 minutes, no further bleeding noted. Xeroform and bacitracin will be applied to the area and a dressing will be placed. No need for sutures at this time. Patient agrees to prophylactic treatment for gonorrhea, chlamydia and trichomonas. 500mg IM ceftriaxone has been given here and scripts for doxycycline 100 mg po BID X 7 days and metronidazole 500 mg po BID X 7 days have been given to the patient. Educated on safe sex practices, full pannel STD testing and speaking to? partners on possible STD. At this time patient will be discharged home with prompt PCP follow-up, as well as follow-up as soon as possible with patient's plastic surgeon. Plastic surgeon aware, I spoke to him and informed him of plan. At this time I feel comfortable with discharge home. Upon discharge patient not bleeding, hemodynamically stable, appears well. Stable vitals <ANGEL Deshpande - Last Filed: 07/11/21 20:37> Time: 20:24 <ANGEL Deshpande - Last Filed: 07/11/21 20:37> MDM - Wound/Laceration MDM Narrative Medical decision making narrative: 1824 20-year-old female presents status post breast reduction surgery done earlier today at [facility] in [place] with complaints of bleeding from incision site of the left breast. Physical examination significant for pain to bilateral breasts, active bleeding from the left inferior aspect of breast. Saturating through ABD dressing. Right breast with no acute findings. Plan at this time is CBC, CMP, COVID. Will reach out to [facility] for further guidance as patient had surgery done there today, and was just recently discharged. <ANGEL Deshpande - Last Filed: 07/11/21 20:37> Medical Records Attestation: I reviewed the patient's medical records. <ANGEL Deshpande - Last Filed: 07/11/21 20:37> Lab Data Attestation: I reviewed the patient's lab results. <ANGEL Deshpande - Last Filed: 07/11/21 20:37> Result diagrams: : 07/11/21 19:05 07/11/21 19:05 <ANGEL Deshpande - Last Filed: 07/11/21 20:37> Labs: Lab Results 07/11/21 07/11/21 07/11/21 Range/Units 19:05 19:05 20:59 WBC 20.6 H (4.8-10.8) X10*3/uL RBC 4.01 L (4.20-5.50) X10*6/uL Hgb 11.1 L (12.0-16.0) g/dl Hct 33.9 L (37.0-47.0) % MCV 84.5 (80.0-98.0) fL MCH 27.7 (27.0-33.0) pg MCHC 32.7 (31.0-35.0) g/dl RDW 12.8 (11.0-16.0) % Plt Count 319 (160-400) X10*3/uL MPV 10.3 (9.4-12.3) fL Immature Gran % (Auto) 0.4 (0.0-0.4) % Neut % (Auto) 92.9 H (45-73) % Lymph % (Auto) 2.8 L (20-40) % [place] % (Auto) 3.8 (2-11) % Eos % (Auto) 0.0 (0-4) % Baso % (Auto) 0.1 (0-2) % Lymph # (Auto) 0.6 L (1.2-4.9) X10*3/uL [place] # (Auto) 0.8 (0.1-1.2) X10*3/uL Eos # (Auto) 0.0 (0.0-0.4) X10*3/uL Baso # (Auto) 0.0 (0.0-0.2) X10*3/uL Abs Immat Gran (auto) 0.09 H (0.00-0.03) X10*3/uL Absolute Neuts (auto) 19.1 H (2.0-8.3) x10*3/uL Absolute Nucleated RBC 0.000 (0.0-0.012) X10*3/uL Nucleated RBC % (auto) 0.0 (0.0-0.2) /100WBC Smear Tech's Comments VERIFIED Sodium 138 (135-145) mmol/L Potassium 4.4 D (3.3-5.1) mmol/L Chloride 105 (96-108) mmol/L Carbon Dioxide 25 (22-29) mmol/L Anion Gap 12 (12-20) BUN 15 (9-16) mg/dL Creatinine 0.89 (0.5-1.4) mg/dL Estim Creat Clear Calc 89.2 Estimated GFR > 60 Random Glucose 139 H (60-115) mg/dL Calcium 8.9 (8.4-10.2) mg/dL Total Bilirubin 0.7 (0.0-1.0) mg/dL AST 15 (5-31) U/L ALT 17 (0-31) U/L Alkaline Phosphatase 84 (39-117) U/L Total Protein 6.5 (6.5-8.0) g/dL Albumin 3.9 (3.5-5.0) g/dL Urine Color YELLOW Urine Appearance CLEAR Urine pH 6.5 (5.0-8.0) Ur Specific [place] 1.020 (1.005-1.025) Urine Protein NEG (NEG-TRACE) MG/DL Urine Glucose (UA) NEG (NEG) MG/DL Urine Ketones NEG (NEG) MG/DL Urine Blood NEG (NEG) Urine Nitrite NEG (NEG) Ur Leukocyte Esterase NEG (NEG) <ANGEL Deshpande Last Filed: 07/11/21 20:37> Critical Care Time Critical Care Time Critical Care Time: Yes <ANGEL Deshpande Last Filed: 07/11/21 20:37> Total Critical Care Time: 35 <ANGEL Deshpande Last Filed: 07/11/21 20:37> Attestation: I attest to this time spent taking care of the patient, obtaining history, physical, reviewing labs, imaging, speaking to specialist. <ANGEL Deshpande Last Filed: 07/11/21 20:37> Discharge Plan Discharge Clinical Impression: Post-operative complication, Encounter for routine laboratory testing <ANGEL Deshpande Last Filed: 07/11/21 20:37> Patient Disposition: Home, Self-Care <ANGEL Deshpande Last Filed: 07/11/21 20:37> Instructions: Surgical Site Infections (ED), Postoperative Bleeding (ED) <ANGEL Deshpande Last Filed: 07/11/21 20:37> Additional Instructions: Take your medications as prescribed. If you were prescribed antibiotics today, it is important that you take your medication to their entirety, do not skip any doses, do not finish them early. Follow-up with your primary care provider this week. Return to the emergency department with new or worsening symptoms. Such as fevers, chills, chest pain, shortness of breath, nausea, vomiting, dizziness, headache, vision changes, lethargy, discharge from bilateral breath, bleeding Follow-up with your plastic surgeon tomorrow call to schedule an appointment. In case of emergency call 911 You were treated here today with ceftriaxone, a medication that treats gonorrhea. I have sent to your pharmacy Metronidazole that covers trichomonas, and Doxycycline which covers for chlamydia. Please be reevaluated by a healthcare provider after completing your antibiotics. Do not stop them early, do not skip any doses. Until you are reevaluated by a health care provider please practice safe sex as disucussed. Please also have a conversation with your sexual partners.? I also advise you to obtain full panel STD testing to test for other STDs including HIV, Hepatitis B & C and syphilis with your PCP or a local clinic. <ANGEL Deshpande - Last Filed: 07/11/21 20:37> Prescriptions: New metronidazole 500 mg tablet 500 mg PO BID 7 Days Qty: 14 0RF doxycycline hyclate 100 mg capsule 100 mg PO BID 7 Days Qty: 14 0RF No Action ondansetron 4 mg tablet,disintegrating 4 mg PO Q6-8H PRN (Reason: nausea and vomiting) Qty: 7 0RF amoxicillin 875 mg tablet 875 mg PO BID Qty: 20 0RF ibuprofen 600 mg tablet 600 mg PO Q6H PRN (Reason: pain) Qty: 20 0RF permethrin [Elimite] 5 % cream 1 applic topical Q14D Qty: 60 1RF Rx Instructions: apply second treatment 14 days after first treatment if live lice remain ketoconazole 2 % cream 1 applic topical BID Qty: 30 0RF amoxicillin 500 mg capsule 500 mg PO Q12H 10 Days Qty: 20 0RF ibuprofen 600 mg tablet 600 mg PO Q6H PRN (Reason: fever or pain) Qty: 30 0RF hydrocodone-homatropine [Hycodan] 5-1.5 mg/5 mL (5 mL) syrup 5 ml PO Q6H PRN (Reason: cough) Qty: 60 0RF ondansetron HCl [Zofran] 4 mg tablet 4 mg PO Q6H PRN (Reason: nausea and vomiting) Qty: 14 0RF acetaminophen 500 mg capsule 500 mg PO Q6H PRN (Reason: fever or pain) Qty: 20 0RF <ANGEL Deshpande - Last Filed: 07/11/21 20:37> Referrals: Rian Jones MD [Physician] - 1 day Physician,Unknown J [Primary Care Provider] - <ANGEL Deshpande - Last Filed: 07/11/21 20:37> Stand Alone Forms: Work/School Release <ANGEL Deshpande - Last Filed: 07/11/21 20:37>
[2021-07-11 19:00] VITALS: BP 116/61; PULSE 84; RESP 16; O2SAT 99
[2021-07-11 19:11] LABS: Basophils Percent Auto 0.1 % (0-2); Hematocrit 33.9 % (37.0-47.0); Hemoglobin 11.1 g/dl (12.0-16.0); Imm Gran Abs Auto 0.09 X10*3/uL (0.00-0.03); Imm Gran Pct Auto 0.4 % (0.0-0.4); Lymphocytes Absolute Auto 0.6 X10*3/uL (1.2-4.9); Lymphocytes Percent Auto 2.8 % (20-40); MANUAL DIFF FLAG SCAN; Mean Corpuscular HGB Conc 32.7 g/dl (31.0-35.0); Mean Corpuscular Hemoglobin 27.7 pg (27.0-33.0); Mean Corpuscular Volume 84.5 fL (80.0-98.0); Mean Platelet Volume 10.3 fL (9.4-12.3); Monocytes Absolute Auto 0.8 X10*3/uL (0.1-1.2); Monocytes Percent Auto 3.8 % (2-11); Neutrophils Absolute Auto 19.1 x10*3/uL (2.0-8.3); Neutrophils Percent Auto 92.9 % (45-73); Platelet Count 319 X10*3/uL (160-400); Red Blood Count 4.01 X10*6/uL (4.20-5.50); Red Cell Distribution Width 12.8 % (11.0-16.0); SCAN SMEAR FLAG 1; White Blood Count 20.6 X10*3/uL (4.8-10.8)
[2021-07-11 19:27] LABS: Alanine Aminotransferase 17 U/L (0-31); Albumin Level 3.9 g/dL (3.5-5.0); Alkaline Phosphatase 84 U/L (39-117); Anion Gap 12 (12-20); Aspartate Amino Transferase 15 U/L (5-31); Bilirubin Total 0.7 mg/dL (0.0-1.0); Blood Urea Nitrogen 15 mg/dL (9-16); Calcium 8.9 mg/dL (8.4-10.2); Carbon Dioxide 25 mmol/L (22-29); Chloride 105 mmol/L (96-108); Creatinine Clr Calc Pharmacy 89.2; Estimated Glomerular Filt Rate > 60; Glucose Random 139 mg/dL (60-115); Potassium 4.4 mmol/L (3.3-5.1); Sodium 138 mmol/L (135-145); Total Protein 6.5 g/dL (6.5-8.0)
[2021-07-11 19:28] LABS: SLIDE REVIEW VERIFIED
[2021-07-11] MEDS: cefTRIAXone sodium 500 MG, Lidocaine HCl 1 % MPF 1 ML IM (20:56)
[2021-07-11] MEDS: metroNIDAZOLE 500 MG TABLET PO (20:56)
[2021-07-11 21:12] LABS: Appearance Urine CLEAR; Color Urine YELLOW; Glucose Urine UA NEG (NEG); Leukocyte Esterase Urine NEG (NEG); Nitrite Urine NEG (NEG); PH 6.5 (5.0-8.0); Urine Blood NEG (NEG); Urine Ketones NEG (NEG); Urine Protein NEG (NEG-TRACE)
== END 2021-07-11 21:17 | disposition home or self-care (01) ==
PROVIDERS: Physician Assistant; Emergency Provider Emergency Medicine
DX: L76.22 Postprocedural hemorrhage of skin and subcutaneous tissue following other procedure (principal); Y83.4 Other reconstructive surgery as the cause of abnormal reaction of the patient, or of later complication, without mention of misadventure at the time of the procedure; Y92.9 Unspecified place or not applicable; Z20.2 Contact with and (suspected) exposure to infections with a predominantly sexual mode of transmission
CPT/HCPCS: 36415; 80053; 81003; 85025; 96372; 99284; J0696

== ENCOUNTER 2021-08-13 15:50 | Emergency (ER) | payer OTHER, SELFPAY | END 2021-08-13 18:01 | disposition left against medical advice (07) | PROVIDERS: Emergency Provider Emergency Medicine | DX: J02.9 Acute pharyngitis, unspecified (principal) ==

== ENCOUNTER 2021-09-10 11:29 | Emergency (ER) | payer OTHER, SELFPAY ==
[2021-09-10 11:35] VITALS: BP 136/80; PULSE 77; O2SAT 100
[2021-09-10 12:54] VITALS: BP 123/91; PULSE 80; RESP 16; O2SAT 100; BMI 25.0
--- NOTE | 2021-09-10 13:15 | ED_ITS ---
HPI - Extremity Problem General Chief complaint: Extremity Injury, Upper Stated complaint: right arm injury Time Seen by Provider: 09/10/21 13:15 Source: patient Mode of arrival: ambulatory Limitations: no limitations History of Present Illness HPI Narrative: 20-year-old female with no significant medical history, presents today with right neck and shoulder pain. 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 She says that she immediately felt a sharp pain in her neck, radiating to her scapula and right wrist. She has not taken any pain medication at this time. She denies any dizziness, lightheadedness, abdominal pain, nausea, vomiting, fever, chills, vision changes, chest pain, difficulty breathing, shortness of breath, pain with urination, increased urinary frequency, increased urinary urgency, syncope or a near syncopal episode, recent trauma or falls, bowel incontinence, bladder incontinence, bowel retention, bladder retention, or any other complaints at this time. Patient denies . MD Complaint: extremity pain Onset (ago): hour(s) Pain Consistency: constant Location: right and upper extremity Severity scale (1-10): 1 Quality: dull Radiation: proximal Relieving factors: other (Has not tried anything to lessen pain/discomfort.) Exacerbating factors: range of motion Associated symptoms: denies other symptoms Related Data Previous Rx's Medication Instructions Recorded Elimite 5 % topical cream 1 applic topical Q14D scabies 2 11/29/19 (permethrin) doses #60 grams ketoconazole 2 % topical cream 1 applic topical BID tinea 11/29/19 corporis #30 grams ondansetron 4 mg disintegrating 4 mg PO Q6-8H PRN nausea and 07/04/20 tablet vomiting #7 tabs amoxicillin 875 mg tablet 875 mg PO BID #20 tabs 08/30/20 acetaminophen 500 mg capsule 500 mg PO Q6H PRN fever or pain 12/05/20 #20 caps doxycycline hyclate 100 mg capsule 100 mg PO BID 7 days #14 caps 07/11/21 metronidazole 500 mg tablet 500 mg PO BID 7 days #14 tabs 07/11/21 cyclobenzaprine 5 mg tablet 5 mg PO TID PRN muscle spasm 7 09/10/21 days #21 tabs Allergies Allergy/AdvReac Type Severity Reaction Status Date / Time No Known Allergies Allergy Verified 06/09/21 16:14 Review of Systems Constitutional: Constitutional: Reports no additional constitutional complaints, Denies chills, Denies fever(s) and Denies night sweats Eyes: Eyes: Reports no additional eye complaints, Denies blurry vision, Denies change in vision, Denies diplopia, Denies eye discharge, Denies loss of vision and Denies eye pain ENT: Denies dizziness and Reports neck pain (Radiates to right scapula and right wrist) Cardiovascular: Cardiovascular: Reports no additional cardiovascular complaints, Denies chest pain, Denies lightheadedness, Denies Loss of Consciousness and Denies dyspnea Respiratory: Respiratory: Reports no additional respiratory complaints and Denies dyspnea Gastrointestinal: Gastrointestinal: Reports no additional gastrointestinal complaints, Denies abdominal pain, Denies melena, Denies hematochezia, Denies change in bowel habits and Denies change in stool character Genitourinary: Genitourinary: Denies hematuria, Denies urinary frequency, Denies dysuria, Denies urinary incontinence, Denies urinary hesitancy and Denies urinary urgency Musculoskeletal: Musculoskeletal: Reports no additional musculoskeletal complaints, Reports neck pain (Radiates to right scapula and right wrist), Denies numbness and Denies tingling Neurologic: Denies dizziness, Denies loss of vision, Denies numbness and Denies tingling Psychiatric: Psychiatric: Reports no additional psychiatric complaints Endocrine: Endocrine: Reports no additional endocrine complaints Hematologic/Lymphatic: Hematologic/Lymphatic: Reports no additional hematologic/lymphatic complaints Allergic/Immunologic: Allergic/Immunologic: Reports no additional allergic/immunologic complaints COUNTS INCLUDE 234 BEDS AT THE [facility] Past Medical History Attestation statement: The following information was validated with the patient. Source: old records reviewed Medical History Migraine Sinus pain Surgical History S/P lumpectomy, right breast Social History Social History Alcohol intake: never Patient Tobacco Use Status: Never used Tobacco Use of substances other than those prescribed or required for medical reasons: No Advance Directives: No Advance Directives Information Provided: Yes Patient : Yes Physical Exam Vital Signs: Vital Signs: Last Vital Signs Pulse 80 09/10/21 12:54 Resp 16 08/01/22 12:54 BP 123/91 H 09/10/21 12:54 Pulse Ox 100 09/10/21 12:54 O2 Del Method 09/10/21 12:54 BMI result Body Mass Index 25.0 Const: General: cooperative, no acute distress, alert and awake Nutritional Appearance: well nourished Orientation/consciousness: patient oriented x3 Limitations: no limitations HEENT: Head: Yes normal to inspection and Yes atraumatic Ears: hearing grossly normal bilaterally and external ears normal General nose exam: Normal external nose present, no nasal discharge noted and no epistaxis Face and sinus: Yes normal facial exam, No abrasion and No laceration Mouth: Normal oral and palatal mucosa present, no drooling and no muffled voice Eyes: General: appearance normal, both eyes and all related structures Periorbital: periorbital findings normal Eyelids: Yes eyelids normal Conjunctivae: conjunctivae normal Pupils: Equal, round and reactive pupils present EOM: EOMs intact bilaterally Neck: Neck: Yes normal visual inspection, Yes full ROM and Yes no lymphadenopathy Chest: Chest palpation & inspection: normal inspection of the chest Resp: Effort & Inspection: normal respiratory effort and able to speak in complete sentences Auscultation: clear to auscultation bilaterally Cardio: Rate: regular rate Rhythm: regular rhythm GI: Inspection: Yes normal to inspection Neuro: General: patient oriented x3 and moves all extremities Cranial nerves: Yes Equal, round and reactive pupils present Cognition (Neuro): normal cognition Motor exam (neuro): 5/5 motor strength present throughout Sensory Exam: Normal double simultaneous stimulation for sensation Coordination: [id number] test normal Extrem: General: Yes normal to inspection, Yes full ROM and Yes capillary refill normal Right upper extremity: shoulder/upper arm Details: abnormal ROM Details: pain with active ROM Psych: Appearance: grossly normal Mental Status: mental status grossly normal Affect: normal affect Attitude: cooperative Thought process: Normal thought process present Thought content: Normal thought content present Insight: Good insight present (Psych) MDM - Extremity (Nontraumatic) MDM Narrative Medical decision making narrative: Patient is a 20 year old female presenting to the emergency department today with right shoulder and neck pain. Patient's physical exam was unremarkable. I explained my physical exam findings as well to the patient and the patient's mother. I answered all questions asked by the patient and the patient's mother. Patient received IM Toradol and PO Flexeril which she stated helped her symptoms significantly. I stressed the importance of the patient taking her medication as prescribed. I stressed the importance of the patient following up with her primary care provider. I stressed the importance of the patient returning to the emergency department immediately if her symptoms were to worsen or if she were to develop any dizziness, shortness of breath, difficulty breathing, chest pain, blurry vision, loss of vision, nausea, vomiting, abdominal pain, fever, chills, back pain, or any other complaints. Patient verbalized agreement and understanding with this treatment plan and discharge. Medical Records Attestation: I reviewed the patient's medical records. Discharge Plan Discharge Clinical Impression: Acute shoulder pain Patient Disposition: Home, Self-Care Instructions: Shoulder Pain (ED) Additional Instructions: Follow up with your primary care provider. Return to the emergency department immediately if your symptoms worsen or if you develop any dizziness, shortness of breath, difficulty breathing, chest pain, blurry vision, loss of vision, nausea, vomiting, abdominal pain, fever, chills, back pain, or any other complaints. Prescriptions: New cyclobenzaprine 5 mg tablet 5 mg PO TID PRN (Reason: muscle spasm) 7 Days Qty: 21 0RF Discontinued ibuprofen 600 mg tablet 600 mg PO Q6H PRN (Reason: pain) Qty: 20 0RF amoxicillin 500 mg capsule 500 mg PO Q12H 10 Days Qty: 20 0RF ibuprofen 600 mg tablet 600 mg PO Q6H PRN (Reason: fever or pain) Qty: 30 0RF hydrocodone-homatropine [Hycodan] 5-1.5 mg/5 mL (5 mL) syrup 5 ml PO Q6H PRN (Reason: cough) Qty: 60 0RF ondansetron HCl [Zofran] 4 mg tablet 4 mg PO Q6H PRN (Reason: nausea and vomiting) Qty: 14 0RF No Action ondansetron 4 mg tablet,disintegrating 4 mg PO Q6-8H PRN (Reason: nausea and vomiting) Qty: 7 0RF amoxicillin 875 mg tablet 875 mg PO BID Qty: 20 0RF permethrin [Elimite] 5 % cream 1 applic topical Q14D Qty: 60 1RF Rx Instructions: apply second treatment 14 days after first treatment if live lice remain ketoconazole 2 % cream 1 applic topical BID Qty: 30 0RF acetaminophen 500 mg capsule 500 mg PO Q6H PRN (Reason: fever or pain) Qty: 20 0RF metronidazole 500 mg tablet 500 mg PO BID 7 Days Qty: 14 0RF doxycycline hyclate 100 mg capsule 100 mg PO BID 7 Days Qty: 14 0RF Referrals: [facility] [Provider Group] (Call to establish and follow up with a primary care provider. If you already have a primary care provider, please follow up with them. ) [facility], [place] [Provider Group] (Call to establish and follow up with a primary care provider. If you already have a primary care provider, please follow up with them. ) [facility] (Call to establish and follow up with a primary care provider. If you already have a primary care provider, please follow up with them. ) [facility] [Provider Group] (If pain persists, call to establish and follow up with an orthopedic provider. ) [facility] [Physician] - (Call to establish and follow up with a primary care provider. If you already have a primary care provider, please follow up with them. ) Stand Alone Forms: Work/School Release Interventions: ED Discharge Assessment Last Done: 09/10/21 14:36 Discharge Date/Time: 09/10/21 14:38 Print Language: Citizen [place]
[2021-09-10] MEDS: Cyclobenzaprine HCl 5 MG TABLET PO (14:23)
[2021-09-10] MEDS: Ketorolac Tromethamine 15 MG/ML VIAL IM (14:24)
--- NOTE | 2021-09-10 14:37 | PC.NURSE ---
PT NOT AT THE BEDSIDE TO RECEIVE THE SLING TO R SHOULDER/ARM. CHARY LANGLEY.
== END 2021-09-10 14:38 | disposition home or self-care (01) ==
PROVIDERS: Emergency Provider Emergency Medicine; PCP Nurse Practitioner Family
DX: M25.511 Pain in right shoulder (principal); M54.2 Cervicalgia; Z79.899 Other long term (current) drug therapy
CPT/HCPCS: 96372; 99284; J1885

== ENCOUNTER 2021-11-10 15:19 | Emergency (ER) | payer OTHER, SELFPAY ==
[2021-11-10 15:57] VITALS: BP 109/75; PULSE 84; RESP 18; TEMP 36.7; O2SAT 100; BMI 25.2
[2021-11-10 16:36] LABS: MANUAL DIFF FLAG NO
[2021-11-10 16:38] LABS: Basophils Percent Auto 0.5 % (0-2); Eosinophils Absolute Auto 0.1 X10*3/uL (0.0-0.4); Eosinophils Percent Auto 0.8 % (0-4); Hematocrit 38.8 % (37.0-47.0); Hemoglobin 12.4 g/dl (12.0-16.0); Imm Gran Abs Auto 0.03 X10*3/uL (0.00-0.03); Imm Gran Pct Auto 0.4 % (0.0-0.4); Lymphocytes Absolute Auto 1.4 X10*3/uL (1.2-4.9); Lymphocytes Percent Auto 18.3 % (20-40); Mean Corpuscular Hemoglobin 25.2 pg (27.0-33.0); Mean Corpuscular Volume 78.9 fL (80.0-98.0); Monocytes Absolute Auto 0.6 X10*3/uL (0.1-1.2); Monocytes Percent Auto 8.5 % (2-11); Neutrophils Absolute Auto 5.4 x10*3/uL (2.0-8.3); Neutrophils Percent Auto 71.5 % (45-73); Platelet Count 313 X10*3/uL (160-400); Red Blood Count 4.92 X10*6/uL (4.20-5.50); Red Cell Distribution Width 14.9 % (11.0-16.0); White Blood Count 7.5 X10*3/uL (4.8-10.8)
[2021-11-10 16:51] LABS: COVID-19 Test Negative (Negative)
[2021-11-10 16:52] LABS: Alanine Aminotransferase 19 U/L (0-31); Albumin Level 4.4 g/dL (3.5-5.0); Alkaline Phosphatase 94 U/L (39-117); Anion Gap 16 (12-20); Aspartate Amino Transferase 20 U/L (5-31); Bilirubin Total 0.4 mg/dL (0.0-1.0); Blood Urea Nitrogen 12 mg/dL (9-16); Calcium 8.8 mg/dL (8.4-10.2); Carbon Dioxide 25 mmol/L (22-29); Chloride 105 mmol/L (96-108); Creatinine Clr Calc Pharmacy 110.2; Estimated Glomerular Filt Rate > 60; Glucose Random 84 mg/dL (60-115); Potassium 4.3 mmol/L (3.3-5.1); Sodium 142 mmol/L (135-145); Total Protein 7.5 g/dL (6.5-8.0)
[2021-11-10 18:27] VITALS: BP 106/61; PULSE 91; RESP 16; TEMP 36.9; O2SAT 97
--- NOTE | 2021-11-10 18:55 | ED.DIZZY ---
HPI - Dizziness General Chief Complaint: Headache Stated Complaint: dizziness,nausea,covid booster 11/09 Time Seen by Provider: 11/10/21 18:45 History of Present Illness HPI Narrative: Patient with no significant past medical history notice dizziness since earlier today feels everything spinning as with nausea and off balance mild headache feels slightly nauseated Related Data Previous Rx's Medication Instructions Recorded Elimite 5 % topical cream 1 applic topical Q14D scabies 2 11/29/19 (permethrin) doses #60 grams ketoconazole 2 % topical cream 1 applic topical BID tinea 11/29/19 corporis #30 grams ondansetron 4 mg disintegrating 4 mg PO Q6-8H PRN nausea and 07/04/20 tablet vomiting #7 tabs amoxicillin 875 mg tablet 875 mg PO BID #20 tabs 08/30/20 acetaminophen 500 mg capsule 500 mg PO Q6H PRN fever or pain 12/05/20 #20 caps doxycycline hyclate 100 mg capsule 100 mg PO BID 7 days #14 caps 07/11/21 metronidazole 500 mg tablet 500 mg PO BID 7 days #14 tabs 07/11/21 cyclobenzaprine 5 mg tablet 5 mg PO TID PRN muscle spasm 7 09/10/21 days #21 tabs meclizine 25 mg tablet 25 mg PO TID PRN dizziness #20 tabs 11/10/21 Allergies Allergy/AdvReac Type Severity Reaction Status Date / Time No Known Allergies Allergy Verified 06/09/21 16:14 Review of Systems Review of Systems: Yes all other systems are reviewed and are negative PMFSH Past Medical History Medical History Migraine Sinus pain Surgical History S/P lumpectomy, right breast Social History Social History Alcohol intake: never Patient Tobacco Use Status: Never used Tobacco Advance Directives: No Advance Directives Information Provided: No Physical Exam Vital Signs: Vital Signs: Last Vital Signs Temp 98.4 F 11/10/21 18:27 Pulse 91 11/10/21 18:27 Resp 16 11/10/21 18:27 BP 106/61 11/10/21 18:27 Pulse Ox 97 10/01/22 18:27 O2 Del Method 11/10/21 18:27 BMI result Body Mass Index 25.2 Appearance: Alert. Oriented X3. No acute distress. Eyes: PERRLA, No Nystagmus ENT: Pharynx normal. Oral Mucosa moist Neck: Normal inspection. Neck supple. CVS: Normal heart rate and rhythm. Pulses normal. Respiratory: No respiratory distress. Equal air entry bilateral, no wheezing/rales/rhonchi Abdomen: Soft and nontender. Bowel sounds are present, no mass palpable, no CVA tenderness Skin: Skin warm and dry. Normal skin color. Normal skin turgor. Extremities: No lower extremity edema. No calf tenderness Neuro: Oriented X 3. No motor deficit. No sensory deficit.No cerebellar signs , cranial nerves II-XII intact MDM - Dizziness Lab Data Attestation: I reviewed the patient's lab results. Result diagrams: 11/10/21 16:31 11/10/21 16:31 Labs: Lab Results 11/10/21 11/10/21 11/10/21 Range/Units 16:31 16:31 16:31 WBC 7.5 (4.8-10.8) X10*3/uL RBC 4.92 D (4.20-5.50) X10*6/uL Hgb 12.4 (12.0-16.0) g/dl Hct 38.8 (37.0-47.0) % MCV 78.9 L (80.0-98.0) fL MCH 25.2 L (27.0-33.0) pg MCHC 32.0 (31.0-35.0) g/dl RDW 14.9 (11.0-16.0) % Plt Count 313 (160-400) X10*3/uL MPV 10.0 (9.4-12.3) fL Immature Gran % (Auto) 0.4 (0.0-0.4) % Neut % (Auto) 71.5 (45-73) % Lymph % (Auto) 18.3 L (20-40) % [place] % (Auto) 8.5 (2-11) % Eos % (Auto) 0.8 (0-4) % Baso % (Auto) 0.5 (0-2) % Lymph # (Auto) 1.4 (1.2-4.9) X10*3/uL [place] # (Auto) 0.6 (0.1-1.2) X10*3/uL Eos # (Auto) 0.1 (0.0-0.4) X10*3/uL Baso # (Auto) 0.0 (0.0-0.2) X10*3/uL Abs Immat Gran (auto) 0.03 (0.00-0.03) X10*3/uL Absolute Neuts (auto) 5.4 (2.0-8.3) x10*3/uL Absolute Nucleated RBC 0.000 (0.0-0.012) X10*3/uL Nucleated RBC % (auto) 0.0 (0.0-0.2) /100WBC Sodium 142 (135-145) mmol/L Potassium 4.3 (3.3-5.1) mmol/L Chloride 105 (96-108) mmol/L Carbon Dioxide 25 (22-29) mmol/L Anion Gap 16 (12-20) BUN 12 (9-16) mg/dL Creatinine 0.78 (0.5-1.4) mg/dL Estim Creat Clear Calc 110.2 Estimated GFR > 60 Random Glucose 84 (60-115) mg/dL Calcium 8.8 (8.4-10.2) mg/dL Total Bilirubin 0.4 (0.0-1.0) mg/dL AST 20 (5-31) U/L ALT 19 (0-31) U/L Alkaline Phosphatase 94 (39-117) U/L Total Protein 7.5 (6.5-8.0) g/dL Albumin 4.4 (3.5-5.0) g/dL COVID-19 ([facility]) Negative (Negative) COVID-19 Clin Com See Note Discharge Plan Discharge Clinical Impression: Benign paroxysmal positional vertigo, bilateral Patient Disposition: Home, Self-Care Instructions: Benign Paroxysmal Positional Vertigo (ED) Additional Instructions: Care and cautions as advised Meclizine 1 tablet every 8 hours as needed for severe dizziness Follow with PCP if not better Prescriptions: New meclizine 25 mg tablet 25 mg PO TID PRN (Reason: dizziness) Qty: 20 0RF No Action ondansetron 4 mg tablet,disintegrating 4 mg PO Q6-8H PRN (Reason: nausea and vomiting) Qty: 7 0RF amoxicillin 875 mg tablet 875 mg PO BID Qty: 20 0RF permethrin [Elimite] 5 % cream 1 applic topical Q14D Qty: 60 1RF Rx Instructions: apply second treatment 14 days after first treatment if live lice remain ketoconazole 2 % cream 1 applic topical BID Qty: 30 0RF cyclobenzaprine 5 mg tablet 5 mg PO TID PRN (Reason: muscle spasm) 7 Days Qty: 21 0RF acetaminophen 500 mg capsule 500 mg PO Q6H PRN (Reason: fever or pain) Qty: 20 0RF metronidazole 500 mg tablet 500 mg PO BID 7 Days Qty: 14 0RF doxycycline hyclate 100 mg capsule 100 mg PO BID 7 Days Qty: 14 0RF
[2021-11-10] MEDS: Meclizine HCl 25 MG TABLET PO (19:02)
--- NOTE | 2021-11-10 19:28 | PC.NURSE ---
Reviewed discharge instructions with patient, pt verbalized understanding. no sob or chest pain at this time. no sign of distress at discharge.
== END 2021-11-10 19:29 | disposition home or self-care (01) ==
PROVIDERS: Emergency Provider Internal Medicine
DX: H81.13 Benign paroxysmal vertigo, bilateral (principal); Z20.822 Contact with and (suspected) exposure to COVID-19
CPT/HCPCS: 80053; 85025; 87635; 99283; 99284

== ENCOUNTER 2022-01-08 22:56 | Emergency (ER) | payer OTHER, SELFPAY ==
[2022-01-08 23:04] VITALS: BP 120/64; PULSE 76; RESP 16; TEMP 36.2; O2SAT 97; BMI 23.8
[2022-01-08 23:25] LABS: Basophils Absolute Auto 0.1 X10*3/uL (0.0-0.2); Basophils Percent Auto 0.4 % (0-2); Eosinophils Absolute Auto 0.3 X10*3/uL (0.0-0.4); Eosinophils Percent Auto 2.2 % (0-4); Hematocrit 37.3 % (37.0-47.0); Hemoglobin 12.2 g/dl (12.0-16.0); Imm Gran Abs Auto 0.04 X10*3/uL (0.00-0.03); Imm Gran Pct Auto 0.3 % (0.0-0.4); Lymphocytes Absolute Auto 3.4 X10*3/uL (1.2-4.9); Lymphocytes Percent Auto 28.4 % (20-40); MANUAL DIFF FLAG NO; Mean Corpuscular HGB Conc 32.7 g/dl (31.0-35.0); Mean Corpuscular Hemoglobin 26.5 pg (27.0-33.0); Mean Corpuscular Volume 80.9 fL (80.0-98.0); Mean Platelet Volume 10.4 fL (9.4-12.3); Monocytes Absolute Auto 0.7 X10*3/uL (0.1-1.2); Monocytes Percent Auto 5.9 % (2-11); Neutrophils Absolute Auto 7.4 x10*3/uL (2.0-8.3); Neutrophils Percent Auto 62.8 % (45-73); Platelet Count 327 X10*3/uL (160-400); Red Blood Count 4.61 X10*6/uL (4.20-5.50); Red Cell Distribution Width 13.1 % (11.0-16.0); White Blood Count 11.8 X10*3/uL (4.8-10.8)
[2022-01-08 23:26] LABS: Appearance Urine Clear; Color Urine Yellow; Glucose Urine UA Negative (Negative); Leukocyte Esterase Urine Negative (Negative); Nitrite Urine Negative (Negative); PH 5.5 (5.0-9.0); Urine Blood Negative (Negative); Urine Ketones Negative (Negative); Urine Protein Negative (Neg-Trace)
[2022-01-08 23:30] LABS: UPreg QC Valid YES; Urine Pregnancy NEGATIVE (NEGATIVE)
[2022-01-08 23:56] LABS: Alanine Aminotransferase 19 U/L (0-31); Albumin Level 4.1 g/dL (3.5-5.0); Alkaline Phosphatase 97 U/L (39-117); Anion Gap 15 (12-20); Aspartate Amino Transferase 20 U/L (5-31); Bilirubin Total 0.2 mg/dL (0.0-1.0); Blood Urea Nitrogen 15 mg/dL (9-16); Calcium 9.5 mg/dL (8.4-10.2); Carbon Dioxide 22 mmol/L (22-29); Chloride 109 mmol/L (96-108); Creatinine Clr Calc Pharmacy 89.4; Estimated Glomerular Filt Rate > 60; Glucose Random 121 mg/dL (60-115); Potassium 4.1 mmol/L (3.3-5.1); Sodium 142 mmol/L (135-145)
== END 2022-01-09 00:41 | disposition left against medical advice (07) ==
PROVIDERS: Emergency Provider Emergency Medicine
DX: R10.30 Lower abdominal pain, unspecified (principal); Z32.02 Encounter for pregnancy test, result negative
CPT/HCPCS: 36415; 80053; 81003; 81025; 85025; 99282; 99283